=== PATIENT | male | born 1945 | race Two or more races ===

== ENCOUNTER 2017-02-04 18:54 | Emergency (ER) | payer OTHER ==
[~2017-02-04] VITALS: Ht 160 cm; Wt 74.8 kg
[2017-02-04] MEDS ORDERED: cloNIDine HCL 0.1 MG TAB PO ONE (19:15)
[2017-02-05 03:35] VITALS: BP 181/101
== END 2017-02-05 03:53 | disposition home or self-care (01) ==
LOC: ER 18:54
DX: M79.662 Pain in left lower leg (principal); I10 Essential (primary) hypertension; F17.210 Nicotine dependence, cigarettes, uncomplicated
CPT/HCPCS: 93971

== ENCOUNTER 2022-10-24 13:09 | Inpatient (IN) | payer OTHER ==
[~2022-10-24] VITALS: Ht 167.6 cm; Wt 74.8 kg
[2022-10-24] MEDS ORDERED: LABETALOL HCL 5 MG/ML 4ML SYRINGE IV ONE (13:30)
[2022-10-24] MEDS ORDERED: MECLIZINE HCL 25 MG TAB PO ONE (13:30)
[2022-10-24 13:42] LABS: Basophils # (auto) 0.1 10 ^3/uL (0-0.2); Eosinophils # (auto) 0.2 10 ^3/uL (0-0.8); Lymphocytes # (auto) 0.9 10 ^3/uL (0.4-5.4); Monocytes # (auto) 0.5 10 ^3/uL (0-1.3)
[2022-10-24 13:44] LABS: Basophils % (auto) 0.5 % (0.0-2.0); Eosinophils % (auto) 1.3 % (0.0-7.0); Hemoglobin 18.9 g/dL (13.5-17.5); Mean Corpuscular Hemoglobin 33.2 pg (28.0-32.0); Mean Corpuscular Hgb Conc. 33.5 g/dL (32.0-36.0); Mean Corpuscular Volume 99.1 fL (80.0-100.0); Monocytes % (auto) 4.2 % (0.0-12.0); Neutrophils # (auto) 10.9 10 ^3/uL (1.6-8.6); Nucleated Red Blood Cells % 0.1 %; Red Cell Distribution Width 16.4 % (11.8-14.3); White Blood Cell 12.5 10^3/uL (4.4-10.8)
[2022-10-24 13:52] LABS: Hematocrit 56.5 % (41.0-53.0)
[2022-10-24 14:04] LABS: Calcium 9.2 mg/dL (8.5-10.1); Magnesium 2.4 mg/dL (1.6-2.6); Potassium 3.8 mmol/L (3.5-5.1)
[2022-10-24 14:07] LABS: BUN/Creatinine Ratio 10.6; Bilirubin, Total 1.1 mg/dL (0.2-1.0); Total Protein 7.1 g/dL (6.4-8.2)
[2022-10-24] MEDS ORDERED: HYDROcodone-ACET 5/325MG TAB PO PRN (16:15)
[2022-10-24] MEDS ORDERED: NITROGLYCERIN 0.4 MG SL TAB SL PRN (16:15)
[2022-10-24] MEDS ORDERED: ONDANSETRON HCL 4 MG/2 ML VIAL IV PRN (16:15)
[2022-10-24] MEDS ORDERED: MORPHINE SULFATE INJ 2 MG/ml SYRG IV PRN (16:15)
[2022-10-24] MEDS ORDERED: DOCUSATE SOD 100 MG CAP PO PRN (16:15)
[2022-10-24] MEDS ORDERED: ACETAMINOPHEN 325 MG TAB PO PRN (16:15)
[2022-10-24] MEDS ORDERED: LISI40TA11 (16:30)
[2022-10-24] MEDS ORDERED: ATOR20TA50 PO (16:30)
[2022-10-24] MEDS ORDERED: HYDR12.56 PO (16:30)
[2022-10-24] MEDS ORDERED: diazePAM 5 MG TAB PO ONE (16:45)
[2022-10-24] MEDS ORDERED: LORazepam 2MG/ML-1ML VIAL IV PRN (17:15)
[2022-10-24] MEDS ORDERED: ASPirin 325 MG TAB PO ONE (17:15)
[2022-10-24] MEDS ORDERED: hydrALAZINE HCL 20 MG/ML VL IV PRN (18:15)
[2022-10-24 20:00] LABS: INR 1.1 (0.9-1.15); Partial Thromboplastin Time 30.6 sec (24.6-33.4)
[2022-10-24] MEDS: SODIUM CHLOR 0.9% PF (SALINE LOCK) 10ML VIAL/SYR IV SCH (22:09)
[2022-10-24] MEDS: GABAPENTIN 300 MG CAP PO SCH (22:09)
[2022-10-25 02:17] LABS: Urine Bacteria NONE SEEN /hpf (None Seen); Urine Blood Negative /uL (Negative); Urine WBC 1 /hpf (0 - 3)
[2022-10-25 05:12] LABS: Basophils # (auto) 0 10 ^3/uL (0-0.2); Basophils % (auto) 0.3 % (0.0-2.0); Eosinophils # (auto) 0.4 10 ^3/uL (0-0.8); Hematocrit 54.9 % (41.0-53.0); Monocytes # (auto) 0.7 10 ^3/uL (0-1.3); Neutrophils # (auto) 11.9 10 ^3/uL (1.6-8.6); Red Cell Distribution Width 15.9 % (11.8-14.3); White Blood Cell 14.2 10^3/uL (4.4-10.8)
[2022-10-25 05:13] LABS: Hemoglobin 18.4 g/dL (13.5-17.5); Lymphocytes # (auto) 1.2 10 ^3/uL (0.4-5.4); Lymphocytes % (auto) 8.3 % (10.0-50.0); Mean Corpuscular Hemoglobin 33.1 pg (28.0-32.0); Mean Corpuscular Hgb Conc. 33.6 g/dL (32.0-36.0); Mean Corpuscular Volume 98.5 fL (80.0-100.0); Monocytes % (auto) 4.6 % (0.0-12.0); Neutrophils % (auto) 83.8 % (37.0-80.0); Nucleated Red Blood Cells % 0.1 %; Red Blood Cells 5.57 10^6/uL (4.5-5.90)
[2022-10-25 05:33] LABS: Albumin 3.3 g/dL (3.4-5.0); Calcium 8.7 mg/dL (8.5-10.1); Potassium 3.1 mmol/L (3.5-5.1)
[2022-10-25 05:35] LABS: BUN/Creatinine Ratio 12.7
[2022-10-25 05:38] LABS: Total Protein 6.8 g/dL (6.4-8.2)
[2022-10-25] MEDS: GABAPENTIN 300 MG CAP PO SCH ×2 (05:51→22:27)
[2022-10-25] MEDS: SODIUM CHLOR 0.9% PF (SALINE LOCK) 10ML VIAL/SYR IV SCH ×3 (05:51→22:28)
[2022-10-25] MEDS ORDERED: AMIODARONE HCL 150 MG in D5W 5% 100 ML IV ONE (07:15)
[2022-10-25] MEDS ORDERED: AMIODARONE 450mg/250ml AE 250 ML IV SCH ×2 (07:30→13:30)
[2022-10-25] MEDS ORDERED: POTASSIUM CHL 20 Meq TABLET PO ONE (08:45)
[2022-10-25] MEDS: cefTRIAXone 1GM/50ML D5W 50 ML IV SCH (09:28)
[2022-10-25 09:29] LABS: Phosphorus 2.5 mg/dL (2.5-4.90)
[2022-10-25] MEDS ORDERED: ASPirin-EC 81 mg tab PO ONE (10:30)
[2022-10-25] MEDS ORDERED: ATORVASTATIN 20 MG TAB PO ONE (10:30)
[2022-10-25] MEDS ORDERED: ENOXAPARIN SOD 80 MG/0.8ML SYRINGE SC ONE (10:45)
[2022-10-25] MEDS: LISINOPRIL 10 MG TAB PO SCH (10:58)
[2022-10-25] MEDS: METOPROLOL SUCCINATE XL 50 MG TAB PO SCH ×2 (10:58→22:00)
[2022-10-25] MEDS: FOLIC ACID 1 MG, MULTIPLE VITAMIN 10 ML, MAGNESIUM SULF SDV 50% 8 MEQ, THIAMINE INJ 100... INJ SCH ×5 (12:00)
[2022-10-25] MEDS: ENOXAPARIN SOD 80 MG/0.8ML SYRINGE SC SCH (22:00)
[2022-10-25 22:50] VITALS: BP 155/83
[2022-10-26] VITALS (14 sets, daily range): BP systolic 129–203; BP diastolic 69–91
[2022-10-26] MEDS: GABAPENTIN 300 MG CAP PO SCH ×4 (05:38→21:40)
[2022-10-26] MEDS: SODIUM CHLOR 0.9% PF (SALINE LOCK) 10ML VIAL/SYR IV SCH ×3 (05:41→21:43)
[2022-10-26 06:23] LABS: Magnesium 2.1 mg/dL (1.6-2.6); Potassium 4.1 mmol/L (3.5-5.1)
[2022-10-26 06:26] LABS: BUN/Creatinine Ratio 17.9; Calcium 8.7 mg/dL (8.5-10.1)
[2022-10-26 07:04] LABS: Basophils # (auto) 0.1 10 ^3/uL (0-0.2); Basophils % (auto) 0.8 % (0.0-2.0); Eosinophils # (auto) 0.5 10 ^3/uL (0-0.8); Eosinophils % (auto) 4.1 % (0.0-7.0); Hematocrit 53.5 % (41.0-53.0); Hemoglobin 17.8 g/dL (13.5-17.5); Lymphocytes # (auto) 1.8 10 ^3/uL (0.4-5.4); Lymphocytes % (auto) 13.8 % (10.0-50.0); Mean Corpuscular Hgb Conc. 33.2 g/dL (32.0-36.0); Mean Corpuscular Volume 99.4 fL (80.0-100.0); Monocytes # (auto) 0.8 10 ^3/uL (0-1.3); Neutrophils # (auto) 9.8 10 ^3/uL (1.6-8.6); Neutrophils % (auto) 75.3 % (37.0-80.0); Nucleated Red Blood Cells % 0.1 %; Red Blood Cells 5.38 10^6/uL (4.5-5.90); Red Cell Distribution Width 16.3 % (11.8-14.3)
[2022-10-26] MEDS ORDERED: NIFEdipine ER 30 MG TAB PO ONE (07:30)
[2022-10-26] MEDS: METOPROLOL SUCCINATE XL 50 MG TAB PO SCH ×2 (08:30→21:39)
[2022-10-26] MEDS: LISINOPRIL 10 MG TAB PO SCH (08:31)
[2022-10-26] MEDS ORDERED: hydrALAZINE HCL 25 MG TAB PO ONE ×2 (08:45→14:00)
[2022-10-26] MEDS: cefTRIAXone 1GM/50ML D5W 50 ML IV SCH (09:00)
[2022-10-26] MEDS ORDERED: fentaNYL CITRATE 100 MCG/2 ML VL ONE (09:52)
[2022-10-26] MEDS ORDERED: ANGIOMAX 250 MG VIAL IV ONE (09:52)
[2022-10-26] MEDS ORDERED: VERAPAMIL 2.5MG/ML INJ 2ML VIAL IV ONE (09:52)
[2022-10-26] MEDS ORDERED: HEPARIN SODIUM (PORCINE) 5000 UNITS/ML 1ML VIAL ONE (09:52)
[2022-10-26] MEDS ORDERED: MIDAZOLAM HCL 2MG/2ML 2ml VIAL (1mg/ml) ONE (09:52)
[2022-10-26] MEDS ORDERED: SODIUM CHL 0.9% 50 ML ONE (09:52)
[2022-10-26] MEDS ORDERED: LIDOCAINE 2%HCL (LOCAL ANESTH.) INJ 10ml MDV ONE (09:53)
[2022-10-26] MEDS ORDERED: IODIXANOL 320MG/ML 100ML BTL IV ONE ×2 (09:58→10:49)
[2022-10-26] MEDS: ENOXAPARIN SOD 80 MG/0.8ML SYRINGE SC SCH (10:00)
[2022-10-26] MEDS ORDERED: ASPirin-EC 81 mg tab PO SCH (10:00)
[2022-10-26] MEDS ORDERED: CLOPIDOGREL 300 MG TAB ONE (10:47)
[2022-10-26] MEDS ORDERED: hydrALAZINE HCL 20 MG/ML VL ONE (10:53)
[2022-10-26 11:52] LABS: Hepatitis B Surface Antibody Positive (Negative)
[2022-10-26] MEDS: FOLIC ACID 1 MG, MULTIPLE VITAMIN 10 ML, MAGNESIUM SULF SDV 50% 8 MEQ, THIAMINE INJ 100... INJ SCH ×5 (12:00)
[2022-10-26 12:25] LABS: Hepatitis A Total Antibody Positive (Negative)
[2022-10-26] MEDS ORDERED: ASPI-543 PO ×2 (12:54)
[2022-10-26] MEDS ORDERED: LISI40TA11 PO (12:54)
[2022-10-26] MEDS ORDERED: ATOR20TA50 PO (12:54)
[2022-10-26] MEDS ORDERED: ERGO1CAP23 PO (12:54)
[2022-10-26] MEDS ORDERED: HYDR12.56 PO (12:54)
[2022-10-26] MEDS ORDERED: CLOP75TA70 PO (12:54)
[2022-10-26] MEDS ORDERED: METO-6 PO ×2 (12:54)
[2022-10-26 15:18] LABS: Hepatitis C Antibody Negative (Negative)
[2022-10-26] MEDS ORDERED: cloNIDine HCL 0.1 MG TAB PO ONE (15:45)
[2022-10-26] MEDS ORDERED: LISINOPRIL 10 MG TAB PO ONE (15:45)
[2022-10-26] MEDS: ATORVASTATIN 20 MG TAB PO SCH (21:40)
[2022-10-27] MEDS: GABAPENTIN 300 MG CAP PO SCH ×3 (05:28→21:55)
[2022-10-27 05:30] VITALS: BP_SYST 112; BP_SYST 93; BP_DIAS 61; BP_DIAS 80
[2022-10-27] MEDS: SODIUM CHLOR 0.9% PF (SALINE LOCK) 10ML VIAL/SYR IV SCH ×3 (05:30→21:57)
[2022-10-27 08:00] VITALS: BP 121/77
[2022-10-27] MEDS: cefTRIAXone 1GM/50ML D5W 50 ML IV SCH ×2 (08:00→12:34)
[2022-10-27] MEDS ORDERED: AMIODARONE HCL 200 MG TAB PO ONE (08:00)
[2022-10-27] MEDS: CLOPIDOGREL BISULFATE 75 MG TAB PO SCH (08:09)
[2022-10-27 08:42] LABS: Basophils # (auto) 0.1 10 ^3/uL (0-0.2); Eosinophils # (auto) 0.3 10 ^3/uL (0-0.8); Lymphocytes # (auto) 1.2 10 ^3/uL (0.4-5.4); Mean Corpuscular Volume 98.9 fL (80.0-100.0)
[2022-10-27 08:44] LABS: Basophils % (auto) 0.7 % (0.0-2.0); Eosinophils % (auto) 1.7 % (0.0-7.0); Hemoglobin 19.4 g/dL (13.5-17.5); Lymphocytes % (auto) 7.5 % (10.0-50.0); Mean Corpuscular Hemoglobin 33.3 pg (28.0-32.0); Mean Corpuscular Hgb Conc. 33.7 g/dL (32.0-36.0); Neutrophils # (auto) 13.6 10 ^3/uL (1.6-8.6); Neutrophils % (auto) 84.1 % (37.0-80.0); Nucleated Red Blood Cells % 0.1 %; Red Blood Cells 5.83 10^6/uL (4.5-5.90); Red Cell Distribution Width 16.1 % (11.8-14.3); White Blood Cell 16.2 10^3/uL (4.4-10.8)
[2022-10-27 08:49] LABS: Hematocrit 57.7 % (41.0-53.0)
[2022-10-27 08:53] LABS: Potassium 3.8 mmol/L (3.5-5.1)
[2022-10-27 08:59] LABS: Magnesium 2.5 mg/dL (1.6-2.6)
[2022-10-27] MEDS ORDERED: ASPirin-EC 81 mg tab PO SCH (10:00)
[2022-10-27] MEDS: LISINOPRIL 10 MG TAB PO SCH (10:00)
[2022-10-27] MEDS ORDERED: NIFEdipine ER 30 MG TAB PO SCH (10:00)
[2022-10-27] MEDS: METOPROLOL SUCCINATE XL 50 MG TAB PO SCH ×2 (10:00→21:54)
[2022-10-27] MEDS ORDERED: DOXYCYCLINE 100 MG TAB/CAP PO ONE (10:30)
[2022-10-27 12:00] VITALS: BP 112/69
[2022-10-27] MEDS: FOLIC ACID 1 MG, MULTIPLE VITAMIN 10 ML, MAGNESIUM SULF SDV 50% 8 MEQ, THIAMINE INJ 100... INJ SCH ×5 (12:00)
[2022-10-27] MEDS: APIXABAN 2.5 MG TAB PO SCH ×2 (12:35→14:14)
[2022-10-27] MEDS ORDERED: DIGOXIN (250MCG/ML) 2 ML AMPULE IV ONE (13:15)
[2022-10-27 14:41] LABS: Urine Bacteria NONE SEEN /hpf (None Seen); Urine Blood Negative /uL (Negative); Urine Hyaline Cast FEW /lpf (0 - 2); Urine Mucus FEW (None Seen); Urine Specific Gravity 1.026 (1.001-1.035); Urine WBC 1 /hpf (0 - 3)
[2022-10-27 16:00] VITALS: BP 129/88
[2022-10-27] MEDS ORDERED: AMIODARONE HCL 150 MG in D5W 5% 100 ML IV ONE (19:15)
[2022-10-27] MEDS ORDERED: AMIODARONE 450mg/250ml AE 250 ML IV SCH (19:30)
[2022-10-27] MEDS: APIXABAN 5 MG TAB PO SCH (20:46)
[2022-10-27] MEDS: DOXYCYCLINE 100 MG TAB/CAP PO SCH (21:55)
[2022-10-27] MEDS: ATORVASTATIN 20 MG TAB PO SCH (21:55)
[2022-10-27 22:00] VITALS: BP 141/75
[2022-10-27] MEDS ORDERED: AMIODARONE HCL 200 MG TAB PO SCH (22:00)
[2022-10-28] MEDS ORDERED: AMIODARONE 450mg/250ml AE 250 ML IV SCH (01:30)
[2022-10-28] MEDS: GABAPENTIN 300 MG CAP PO SCH ×3 (06:36→21:55)
[2022-10-28] MEDS: SODIUM CHLOR 0.9% PF (SALINE LOCK) 10ML VIAL/SYR IV SCH ×3 (06:38→21:58)
[2022-10-28 07:02] LABS: Calcium 8.4 mg/dL (8.5-10.1); Potassium 4.6 mmol/L (3.5-5.1)
[2022-10-28 07:06] LABS: BUN/Creatinine Ratio 25.3
[2022-10-28 07:24] LABS: Basophils # (auto) 0 10 ^3/uL (0-0.2); Basophils % (auto) 0.1 % (0.0-2.0); Eosinophils # (auto) 0 10 ^3/uL (0-0.8); Eosinophils % (auto) 0.1 % (0.0-7.0); Hemoglobin 10.4 g/dL (13.5-17.5); Lymphocytes # (auto) 0.7 10 ^3/uL (0.4-5.4); Lymphocytes % (auto) 5.6 % (10.0-50.0); Mean Corpuscular Hemoglobin 26.5 pg (28.0-32.0); Mean Corpuscular Hgb Conc. 31.5 g/dL (32.0-36.0); Mean Corpuscular Volume 84.1 fL (80.0-100.0); Monocytes # (auto) 0.7 10 ^3/uL (0-1.3); Monocytes % (auto) 5.3 % (0.0-12.0); Neutrophils # (auto) 11.8 10 ^3/uL (1.6-8.6); Neutrophils % (auto) 88.9 % (37.0-80.0); Nucleated Red Blood Cells % 0.1 %; Red Blood Cells 3.92 10^6/uL (4.5-5.90); Red Cell Distribution Width 16.7 % (11.8-14.3); White Blood Cell 13.3 10^3/uL (4.4-10.8)
[2022-10-28 08:20] VITALS: BP 159/80
[2022-10-28] MEDS: APIXABAN 5 MG TAB PO SCH ×2 (08:20→20:34)
[2022-10-28] MEDS: DOXYCYCLINE 100 MG TAB/CAP PO SCH ×2 (09:10→21:55)
[2022-10-28] MEDS: LISINOPRIL 10 MG TAB PO SCH (09:11)
[2022-10-28] MEDS: cefTRIAXone 1GM/50ML D5W 50 ML IV SCH (09:17)
[2022-10-28] MEDS: METOPROLOL SUCCINATE XL 50 MG TAB PO SCH (10:00)
[2022-10-28] MEDS: cloNIDine HCL 0.1 MG TAB PO PRN ×2 (12:11→21:55)
[2022-10-28 12:15] VITALS: BP 161/79
[2022-10-28] MEDS ORDERED: METO25TA93 PO (12:27)
[2022-10-28] MEDS ORDERED: DOX100T PO (12:27)
[2022-10-28] MEDS ORDERED: APIX5TAB PO (12:27)
[2022-10-28] MEDS: CLOPIDOGREL BISULFATE 75 MG TAB PO SCH (12:29)
[2022-10-28] MEDS ORDERED: LISINOPRIL 20 MG TAB PO ONE (12:30)
[2022-10-28] MEDS ORDERED: NIFEdipine ER 30 MG TAB PO ONE (15:30)
[2022-10-28 16:10] VITALS: BP 137/88
[2022-10-28] MEDS: ATORVASTATIN 20 MG TAB PO SCH (21:55)
[2022-10-28 22:02] VITALS: BP 163/93
[2022-10-28] MEDS ORDERED: hydrALAZINE HCL 10 MG TAB PO PRN (23:15)
[2022-10-29 05:00] LABS: Basophils # (auto) 0.1 10 ^3/uL (0-0.2); Eosinophils # (auto) 0.5 10 ^3/uL (0-0.8); Hemoglobin 17.7 g/dL (13.5-17.5); Monocytes # (auto) 0.9 10 ^3/uL (0-1.3); Neutrophils % (auto) 78.7 % (37.0-80.0)
[2022-10-29 05:01] VITALS: BP 140/76
[2022-10-29 05:02] LABS: Basophils % (auto) 0.5 % (0.0-2.0); Eosinophils % (auto) 3.5 % (0.0-7.0); Hematocrit 52.4 % (41.0-53.0); Lymphocytes # (auto) 1.5 10 ^3/uL (0.4-5.4); Lymphocytes % (auto) 10.7 % (10.0-50.0); Mean Corpuscular Hemoglobin 33.4 pg (28.0-32.0); Mean Corpuscular Hgb Conc. 33.7 g/dL (32.0-36.0); Mean Corpuscular Volume 99.2 fL (80.0-100.0); Monocytes % (auto) 6.6 % (0.0-12.0); Neutrophils # (auto) 11.1 10 ^3/uL (1.6-8.6); Nucleated Red Blood Cells % 0.1 %; Red Blood Cells 5.29 10^6/uL (4.5-5.90); White Blood Cell 14.1 10^3/uL (4.4-10.8)
[2022-10-29] MEDS: GABAPENTIN 300 MG CAP PO SCH ×2 (05:11→14:00)
[2022-10-29] MEDS: SODIUM CHLOR 0.9% PF (SALINE LOCK) 10ML VIAL/SYR IV SCH (05:14)
[2022-10-29 05:18] LABS: BUN/Creatinine Ratio 24.7; Calcium 9.1 mg/dL (8.5-10.1)
[2022-10-29 08:20] VITALS: BP 144/86
[2022-10-29] MEDS: APIXABAN 5 MG TAB PO SCH (08:30)
[2022-10-29] MEDS ORDERED: METOPROLOL SUCCINATE XL 50 MG TAB PO SCH (10:00)
[2022-10-29] MEDS: cefTRIAXone 1GM/50ML D5W 50 ML IV SCH (10:07)
[2022-10-29] MEDS: DOXYCYCLINE 100 MG TAB/CAP PO SCH (10:07)
[2022-10-29] MEDS: CLOPIDOGREL BISULFATE 75 MG TAB PO SCH (10:08)
[2022-10-29] MEDS: LISINOPRIL 10 MG TAB PO SCH (10:08)
[2022-10-29 12:18] VITALS: BP 144/86
== END 2022-10-29 14:44 | disposition home or self-care (01) | DRG 247 ==
LOC: ER 13:09 → EDBD 13:09 → TELE 16:12 → TELE-WESTW 10-25 14:16
PROVIDERS: ADMIT Nurse Practitioner Family; ATTEND Internal Medicine
PROC: 027034Z Dilation of Coronary Artery, One Artery with Drug-eluting Intraluminal Device, Percutaneous Approach (ICD-10-PCS; principal; 2022-10-26)
PROC: 4A023N7 Measurement of Cardiac Sampling and Pressure, Left Heart, Percutaneous Approach (ICD-10-PCS; 2022-10-26)
PROC: B211YZZ Fluoroscopy of Multiple Coronary Arteries using Other Contrast (ICD-10-PCS; 2022-10-26)
PROC: B215YZZ Fluoroscopy of Left Heart using Other Contrast (ICD-10-PCS; 2022-10-26)
PROC: B41FYZZ Fluoroscopy of Right Lower Extremity Arteries using Other Contrast (ICD-10-PCS; 2022-10-26)
PROC: B41CYZZ Fluoroscopy of Pelvic Arteries using Other Contrast (ICD-10-PCS; 2022-10-26)
DX: I21.4 Non-ST elevation (NSTEMI) myocardial infarction (principal); I16.1 Hypertensive emergency; I50.32 Chronic diastolic (congestive) heart failure; I11.0 Hypertensive heart disease with heart failure; E78.5 Hyperlipidemia, unspecified; F17.210 Nicotine dependence, cigarettes, uncomplicated; I48.91 Unspecified atrial fibrillation; F10.10 Alcohol abuse, uncomplicated; I49.5 Sick sinus syndrome; Z20.822 Contact with and (suspected) exposure to COVID-19
CPT/HCPCS: 36415; 70450; 71045; 71046; 75710; 80048; 80053; 80061; 81001; 82306; 83036; 83605; 83735; 84100; 84439; 84443; 84484; 85025; 85379; 85610; 85730; 86704; 86706; 86708; 86803; 86850; 86900; 86901; 87086; 87340; 87426; 92928; 93005; 93306; 93458; 93886; 96365; 96375; 99152; 99153; 99291; C1874; G0378; J0696; J2001; J2250; J3490; J7060; Q9967

== ENCOUNTER 2022-11-20 08:35 | Day surgery (SDC) | payer OTHER ==
[2022-11-18 14:39] LABS: Basophils # (auto) 0.1 10 ^3/uL (0-0.2); Eosinophils # (auto) 0.2 10 ^3/uL (0-0.8); Eosinophils % (auto) 1.6 % (0.0-7.0); Monocytes # (auto) 0.8 10 ^3/uL (0-1.3); Nucleated Red Blood Cells % 0.2 %
[2022-11-18 14:41] LABS: Basophils % (auto) 0.5 % (0.0-2.0); Lymphocytes # (auto) 1.3 10 ^3/uL (0.4-5.4); Lymphocytes % (auto) 9.2 % (10.0-50.0); Mean Corpuscular Hemoglobin 32.9 pg (28.0-32.0); Mean Corpuscular Hgb Conc. 33.8 g/dL (32.0-36.0); Mean Corpuscular Volume 97.3 fL (80.0-100.0); Monocytes % (auto) 5.9 % (0.0-12.0); Neutrophils # (auto) 11.7 10 ^3/uL (1.6-8.6); Neutrophils % (auto) 82.8 % (37.0-80.0); Red Blood Cells 5.77 10^6/uL (4.5-5.90); Red Cell Distribution Width 15.7 % (11.8-14.3); White Blood Cell 14.2 10^3/uL (4.4-10.8)
[2022-11-18 14:45] LABS: Hematocrit 56.2 % (41.0-53.0)
[2022-11-18 14:56] LABS: INR 1.13 (0.9-1.15); Partial Thromboplastin Time 31.8 sec (24.6-33.4)
[2022-11-18 15:06] LABS: Albumin 3.8 g/dL (3.4-5.0); Calcium 9.2 mg/dL (8.5-10.1); Potassium 3.2 mmol/L (3.5-5.1)
[2022-11-18 15:13] LABS: BUN/Creatinine Ratio 12.2; Bilirubin, Total 0.9 mg/dL (0.2-1.0); Total Protein 7.3 g/dL (6.4-8.2)
[~2022-11-20] VITALS: Ht 162.6 cm; Wt 72.6 kg
[~2022-11-20 08:35] MED LIST: AMLO-496 PO; APIX5TAB PO; ATOR20TA50 PO; CLOP75TA70 PO; DOX100T PO; ERGO1CAP23 PO; HYDR12.56 PO; LISI40TA11 PO; METO25TA93 PO
[2022-11-20] MEDS ORDERED: VANCOMYCIN 1GM/250ML 250 ML IV ONE ×2 (09:30→10:11)
[2022-11-20] MEDS ORDERED: fentaNYL CITRATE 100 MCG/2 ML VL ONE (10:10)
[2022-11-20] MEDS ORDERED: MIDAZOLAM HCL 2MG/2ML 2ml VIAL (1mg/ml) ONE (10:10)
[2022-11-20] MEDS ORDERED: LIDOCAINE 2%HCL (LOCAL ANESTH.) INJ 10ml MDV ONE ×2 (10:11→10:22)
[2022-11-20] MEDS ORDERED: VANCOMYCIN HCL 1000 MG VL ONE (10:20)
[2022-11-20] MEDS ORDERED: IODIXANOL 320MG/ML 100ML BTL IV ONE ×2 (10:20→10:39)
[2022-11-20] MEDS ORDERED: ceFAZolin 1GM VL ONE (10:20)
[2022-11-20] MEDS ORDERED: ACETAMINOPHEN 325 MG TAB PO ONE (14:00)
== END 2022-11-20 14:10 | disposition home or self-care (01) ==
LOC: CATH 08:35
PROVIDERS: ATTEND Internal Medicine
DX: I49.5 Sick sinus syndrome (principal); I48.91 Unspecified atrial fibrillation; Z20.822 Contact with and (suspected) exposure to COVID-19; Z79.01 Long term (current) use of anticoagulants
CPT/HCPCS: 33207; 36415; 71045; 80053; 85025; 85610; 85730; 93005; C1769; C1887; C1894; J2001; J2250; J3010; J3370; Q9967; U0003; J0690

== ENCOUNTER → 2022-11-27 | Outpatient (CLI) | payer OTHER ==
[2022-11-27 10:27] LABS: Basophils # (auto) 0.1 10 ^3/uL (0-0.2); Basophils % (auto) 0.6 % (0.0-2.0); Eosinophils # (auto) 0.3 10 ^3/uL (0-0.8); Lymphocytes # (auto) 1.3 10 ^3/uL (0.4-5.4); Red Blood Cells 5.59 10^6/uL (4.5-5.90)
[2022-11-27 10:29] LABS: Eosinophils % (auto) 2.7 % (0.0-7.0); Hematocrit 54.9 % (41.0-53.0); Hemoglobin 18.4 g/dL (13.5-17.5); Lymphocytes % (auto) 10.7 % (10.0-50.0); Mean Corpuscular Hemoglobin 32.9 pg (28.0-32.0); Mean Corpuscular Hgb Conc. 33.6 g/dL (32.0-36.0); Mean Corpuscular Volume 98.1 fL (80.0-100.0); Monocytes # (auto) 0.6 10 ^3/uL (0-1.3); Monocytes % (auto) 5.3 % (0.0-12.0); Neutrophils # (auto) 9.6 10 ^3/uL (1.6-8.6); Neutrophils % (auto) 80.7 % (37.0-80.0); Red Cell Distribution Width 15.5 % (11.8-14.3); White Blood Cell 11.9 10^3/uL (4.4-10.8)
[2022-11-27 10:52] LABS: Urine Bacteria NONE SEEN /hpf (None Seen); Urine Blood Negative /uL (Negative); Urine Specific Gravity 1.015 (1.001-1.035); Urine WBC 2 /hpf (0 - 3)
[2022-11-27 11:38] LABS: Albumin 3.5 g/dL (3.4-5.0); Potassium 3.6 mmol/L (3.5-5.1)
[2022-11-27 11:48] LABS: BUN/Creatinine Ratio 17.6; Bilirubin, Total 1.2 mg/dL (0.2-1.0); Calcium 9.3 mg/dL (8.5-10.1)
== END | disposition home or self-care (01) ==
LOC: LAB 10:10
PROVIDERS: ATTEND Internal Medicine
DX: E11.9 Type 2 diabetes mellitus without complications (principal); E78.00 Pure hypercholesterolemia, unspecified; R68.89 Other general symptoms and signs
CPT/HCPCS: 36415; 80053; 80061; 81001; 83036; 85025

== ENCOUNTER → 2023-04-19 | Outpatient (CLI) | payer OTHER ==
[~2023-04-19] MED LIST changes: -AMLO-496 PO; +AMLO1TAB23 PO; +DIGO1TAB48 PO; -DOX100T PO; -HYDR12.56 PO; +HYDR12.59 PO; -LISI40TA11 PO; +LISI40TA16 PO; +METO-6 PO; -METO25TA93 PO
== END | disposition home or self-care (01) ==
LOC: LAB 11:46
PROVIDERS: ATTEND Internal Medicine
DX: I50.9 Heart failure, unspecified (principal)
CPT/HCPCS: 36415; 80162

== ENCOUNTER → 2023-06-18 | Outpatient (CLI) | payer OTHER | END | disposition home or self-care (01) | LOC: LAB 14:55 | PROVIDERS: ATTEND Internal Medicine | DX: I50.9 Heart failure, unspecified (principal) | CPT/HCPCS: 36415; 80162 ==

== ENCOUNTER → 2024-03-02 | Outpatient (CLI) | payer OTHER | END | disposition home or self-care (01) | LOC: XYW 13:59 | PROVIDERS: ATTEND Internal Medicine | DX: I51.7 Cardiomegaly (principal); I48.20 Chronic atrial fibrillation, unspecified; Z95.0 Presence of cardiac pacemaker | CPT/HCPCS: 93306 ==

== ENCOUNTER 2024-05-16 23:07 | Inpatient (IN) | payer OTHER ==
[~2024-05-16] VITALS: Ht 162.6 cm; Wt 73.0 kg
[2024-05-16 23:45] LABS: Lymphocytes # (auto) 0.4 10 ^3/uL (0.4-5.4)
[2024-05-16 23:46] LABS: Basophils # (auto) 0.1 10 ^3/uL (0-0.2); Basophils % (auto) 0.8 % (0.0-2.0); Eosinophils # (auto) 0 10 ^3/uL (0-0.8); Eosinophils % (auto) 0.2 % (0.0-7.0); Hemoglobin 20.6 g/dL (13.5-17.5); Lymphocytes % (auto) 2.2 % (10.0-50.0); Mean Corpuscular Hemoglobin 29.6 pg (28.0-32.0); Mean Corpuscular Hgb Conc. 33.3 g/dL (32.0-36.0); Mean Corpuscular Volume 88.9 fL (80.0-100.0); Monocytes # (auto) 1.1 10 ^3/uL (0-1.3); Monocytes % (auto) 6.4 % (0.0-12.0); Neutrophils # (auto) 15.3 10 ^3/uL (1.6-8.6); Neutrophils % (auto) 90.4 % (37.0-80.0); Nucleated Red Blood Cells % 0.3 %; Platelet Count (auto) 342 10^3/uL (140-450); Red Blood Cells 6.96 10^6/uL (4.5-5.90); White Blood Cell 16.9 10^3/uL (4.4-10.8)
[2024-05-16 23:47] LABS: Hematocrit 61.9 % (41.0-53.0); Red Cell Distribution Width 21.8 % (11.8-14.3)
[2024-05-16 23:56] LABS: Anion Gap 9 (5-15); Carbon Dioxide 19 mmol/L (20-30); Chloride 109 mmol/L (98-107); Potassium 2.8 mmol/L (3.5-5.1); Sodium 137 mmol/L (136-145)
[2024-05-17 00:02] LABS: BUN/Creatinine Ratio 8.7 (10.0-20.0); Blood Urea Nitrogen 9 mg/dL (9-23); Glucose 253 mg/dL (74-106)
[2024-05-17 00:22] LABS: Anisocytosis Slight; Platelet Estimate Adequate
[2024-05-17 00:23] LABS: Giant Platelets Few; Large Platelets MODERATE; Stomatocytes Few
[2024-05-17] MEDS: MORPHINE SULFATE 4 MG/ML SYR/VIAL IV ONE (01:18)
[2024-05-17] MEDS: ONDANSETRON HCL 4 MG/2 ML VIAL IV ONE (01:18)
[2024-05-17] MEDS ORDERED: ONDANSETRON HCL 4 MG/2 ML VIAL IV PRN (03:00)
[2024-05-17 03:44] LABS: INR 1.25 (0.9-1.15); Partial Thromboplastin Time 29.8 SEC (24.5-34.5); Prothrombin Time 13.3 sec (9.3-11.8)
[2024-05-17] MEDS ORDERED: DEXTROSE (50%) 50ML SYRG IV PRN ×2 (07:15→15:30)
[2024-05-17 08:00] VITALS: PULSE 87; RESP 22; O2SAT 98
[2024-05-17 08:56] LABS: Basophils # (auto) 0.1 10 ^3/uL (0-0.2); Basophils % (auto) 0.4 % (0.0-2.0); Eosinophils # (auto) 0 10 ^3/uL (0-0.8); Eosinophils % (auto) 0.3 % (0.0-7.0); Hemoglobin 19.6 g/dL (13.5-17.5); Lymphocytes # (auto) 0.4 10 ^3/uL (0.4-5.4); Lymphocytes % (auto) 2.9 % (10.0-50.0); Mean Corpuscular Hemoglobin 29.8 pg (28.0-32.0); Mean Corpuscular Hgb Conc. 33.1 g/dL (32.0-36.0); Monocytes # (auto) 1.1 10 ^3/uL (0-1.3); Monocytes % (auto) 7.9 % (0.0-12.0); Neutrophils # (auto) 12.3 10 ^3/uL (1.6-8.6); Neutrophils % (auto) 88.5 % (37.0-80.0); Nucleated Red Blood Cells % 0.2 %; Platelet Count (auto) 298 10^3/uL (140-450); Red Blood Cells 6.58 10^6/uL (4.5-5.90); Red Cell Distribution Width 21.8 % (11.8-14.3); White Blood Cell 13.9 10^3/uL (4.4-10.8)
[2024-05-17 08:57] LABS: Hematocrit 59.3 % (41.0-53.0)
[2024-05-17] MEDS: POTASSIUM CHL 20MEQ/100ML 100 ML IV ONE (09:10)
[2024-05-17 09:14] LABS: Alanine Aminotransferase 14 U/L (7-40); Albumin 3.7 g/dL (3.2-4.8); Alkaline Phosphatase 81 U/L (46-116); Anion Gap 9 (5-15); Aspartate Aminotransferase 20 U/L (13-40); BUN/Creatinine Ratio 9.6 (10.0-20.0); Bilirubin, Total 1.6 mg/dL (0.2-1.0); Blood Urea Nitrogen 9 mg/dL (9-23); Calcium 9.9 mg/dL (8.7-10.4); Carbon Dioxide 22 mmol/L (20-30); Chloride 109 mmol/L (98-107); Glucose 180 mg/dL (74-106); Potassium 2.9 mmol/L (3.5-5.1); Sodium 140 mmol/L (136-145); Total Protein 6.7 g/dL (5.7-8.2)
[2024-05-17] MEDS: CLOPIDOGREL BISULFATE 75 MG TAB PO SCH (10:00)
[2024-05-17] MEDS: ENOXAPARIN SOD 80 MG/0.8ML SYRINGE SC SCH (10:00)
[2024-05-17] MEDS ORDERED: METOPROLOL SUCCINATE XL 50 MG TAB PO SCH (10:00)
[2024-05-17] MEDS ORDERED: LISINOPRIL 20 MG TAB PO SCH (10:00)
[2024-05-17] MEDS: ACCU-CHEK COMFORT CURVE STRIP VI SCH ×2 (12:23→18:07)
[2024-05-17] MEDS: POTASSIUM CHLORIDE 60 MEQ, LIDOCAINE 1% (LOCAL ANESTH.) 6 ML in SODIUM CHL 0.9% 500 ML IV ONE (12:24)
[2024-05-17] MEDS: InsuLIN REG 1unit/0.01ml Soln (100units/ml) SC SCH ×2 (12:24→18:07)
[2024-05-17] MEDS ORDERED: hydrALAZINE HCL 20 MG/ML VL IV PRN (13:00)
[2024-05-17 18:04] LABS: Urine Bacteria None Seen /hpf (None Seen)
[2024-05-17 18:24] LABS: Urine Blood TRACE /uL (Negative); Urine Clarity Clear (Clear); Urine Color Yellow (Yellow); Urine Mucus FEW (None Seen); Urine Protein, UAD 2+ (Negative); Urine Specific Gravity 1.015 (1.001-1.035); Urine Urobilinogen Normal (Negative); Urine WBC 3 /hpf (0 - 3)
[2024-05-17] MEDS ORDERED: VANCOMYCIN PER PHARMACY 0 MG IV SCH (19:15)
[2024-05-17 19:50] VITALS: PULSE 97; RESP 20; O2SAT 95
[2024-05-17] MEDS: BACITRACIN TOP OINT 1 UD PKG TOP ONE (20:58)
[2024-05-17] MEDS: VANCOMYCIN 1GM/200ML 200 ML IV ONE (20:59)
[2024-05-17] MEDS: ATORVASTATIN 20 MG TAB PO SCH (22:48)
[2024-05-17] MEDS: BACITRACIN TOP OINT 1 UD PKG TOP SCH (22:49)
[2024-05-17] MEDS: MORPHINE SULFATE INJ 2 MG/ml SYRG IV PRN (23:51)
[2024-05-18] VITALS (8 sets, daily range): BP systolic 130–143; BP diastolic 84–93; PULSE 66–102; RESP 18; TEMP 97.5–98; O2SAT 77–99
[2024-05-18] MEDS: HYDROcodone-ACET 7.5/325MG TAB PO ONE (03:40)
[2024-05-18 07:30] LABS: Basophils # (auto) 0.1 10 ^3/uL (0-0.2); Eosinophils # (auto) 0.5 10 ^3/uL (0-0.8); Monocytes # (auto) 1.1 10 ^3/uL (0-1.3)
[2024-05-18 07:32] LABS: Basophils % (auto) 0.8 % (0.0-2.0); Eosinophils % (auto) 3.9 % (0.0-7.0); Hematocrit 52.2 % (41.0-53.0); Hemoglobin 17.8 g/dL (13.5-17.5); Lymphocytes % (auto) 7.6 % (10.0-50.0); Mean Corpuscular Hemoglobin 30.4 pg (28.0-32.0); Mean Corpuscular Hgb Conc. 34.1 g/dL (32.0-36.0); Mean Corpuscular Volume 89.1 fL (80.0-100.0); Monocytes % (auto) 8.3 % (0.0-12.0); Neutrophils # (auto) 10.3 10 ^3/uL (1.6-8.6); Neutrophils % (auto) 79.4 % (37.0-80.0); Nucleated Red Blood Cells % 0.1 %; Platelet Count (auto) 302 10^3/uL (140-450); Red Blood Cells 5.86 10^6/uL (4.5-5.90); Red Cell Distribution Width 21.8 % (11.8-14.3)
[2024-05-18 07:42] LABS: Alanine Aminotransferase 11 U/L (7-40); Alkaline Phosphatase 73 U/L (46-116); Anion Gap 7 (5-15); BUN/Creatinine Ratio 9.9 (10.0-20.0); Blood Urea Nitrogen 9 mg/dL (9-23); Calcium 9.2 mg/dL (8.7-10.4); Carbon Dioxide 25 mmol/L (20-30); Chloride 109 mmol/L (98-107); Glucose 114 mg/dL (74-106); Magnesium 1.7 mg/dL (1.6-2.6); Potassium 3.6 mmol/L (3.5-5.1); Sodium 141 mmol/L (136-145)
[2024-05-18 07:43] LABS: Albumin 3.2 g/dL (3.2-4.8); Aspartate Aminotransferase 14 U/L (13-40); Bilirubin, Total 2.2 mg/dL (0.2-1.0); Total Protein 5.9 g/dL (5.7-8.2)
[2024-05-18] MEDS ORDERED: ENOXAPARIN SOD 100 MG/1 ML SYRINGE SC SCH (10:00)
[2024-05-18] MEDS: LISINOPRIL 20 MG TAB PO SCH (10:00)
[2024-05-18] MEDS ORDERED: CLOPIDOGREL BISULFATE 75 MG TAB PO SCH (10:00)
[2024-05-18] MEDS: METOPROLOL SUCCINATE XL 50 MG TAB PO SCH (10:00)
[2024-05-18] MEDS ORDERED: EMPAGLIFLOZIN 10 MG TAB PO SCH (10:00)
[2024-05-18] MEDS: SPIRONOLACTONE 25 MG TAB PO SCH (10:00)
[2024-05-18] MEDS: MAGNESIUM SULFATE 1GM/100ML 100 ML IV ONE (10:10)
[2024-05-18] MEDS ORDERED: DexAMETHasone SOD PHOS 10MG/1ML VIAL INJ ONE ×2 (11:54→12:19)
[2024-05-18] MEDS ORDERED: LIDOCAINE 1% INJ PF 5ML AMP ONE (11:54)
[2024-05-18] MEDS ORDERED: EPINEPHrine HCL 1 MG/1 ML AMP ONE (11:54)
[2024-05-18] MEDS: ceFAZolin 2 GM/D5W50ml 50 ML IV ONE (12:01)
[2024-05-18] MEDS ORDERED: fentaNYL CITRATE 100 MCG/2 ML VL ONE (12:02)
[2024-05-18] MEDS ORDERED: MIDAZOLAM HCL 2MG/2ML 2ml VIAL (1mg/ml) ONE ×2 (12:03→12:19)
[2024-05-18] MEDS ORDERED: MEPERIDINE HCL (25 MG/ML) 1ML VIAL ONE (12:03)
[2024-05-18] MEDS ORDERED: PROPOFOL 10 MG/ML 20 ML IV ONE (12:19)
[2024-05-18] MEDS: BUPIVACAINE HCL 50 ML ONE (12:24)
[2024-05-18] MEDS: LIDOCAINE W/ EPINEPHRINE 2% INJ 20ML VIAL ONE (13:25)
[2024-05-18] MEDS: BUPIVACAINE 0.5% INJ 50ML VIAL IJ ONE (13:26)
[2024-05-18] MEDS: LACTATED RINGER'S 1,000 ML IV SCH (13:45)
[2024-05-18] MEDS ORDERED: HYDROcodone-ACET 10/325MG TAB PO PRN (13:45)
[2024-05-18] MEDS: VANCOMYCIN 1GM/200ML 200 ML IV SCH (14:19)
[2024-05-18] MEDS: SODIUM CHLOR 0.9% PF (SALINE LOCK) 10ML VIAL/SYR IV SCH (15:07)
[2024-05-18] MEDS: ceFAZolin 2 GM/D5W50ml 50 ML IV SCH (16:45)
[2024-05-18] MEDS: HYDROcodone-ACET 5/325MG TAB PO PRN (20:21)
[2024-05-19] VITALS (12 sets, daily range): BP systolic 126–154; BP diastolic 82–96; PULSE 67–107; RESP 16–20; TEMP 97.5–98.2; O2SAT 93–98
[2024-05-19 06:33] LABS: Basophils # (auto) 0 10 ^3/uL (0-0.2); Basophils % (auto) 0.1 % (0.0-2.0); Eosinophils # (auto) 0 10 ^3/uL (0-0.8); Eosinophils % (auto) 0.2 % (0.0-7.0); Hematocrit 46.8 % (41.0-53.0); Hemoglobin 15.7 g/dL (13.5-17.5); Lymphocytes # (auto) 0.5 10 ^3/uL (0.4-5.4); Lymphocytes % (auto) 3.6 % (10.0-50.0); Mean Corpuscular Hemoglobin 29.7 pg (28.0-32.0); Mean Corpuscular Hgb Conc. 33.4 g/dL (32.0-36.0); Mean Corpuscular Volume 88.9 fL (80.0-100.0); Monocytes % (auto) 6.9 % (0.0-12.0); Neutrophils # (auto) 12.5 10 ^3/uL (1.6-8.6); Neutrophils % (auto) 89.2 % (37.0-80.0); Platelet Count (auto) 303 10^3/uL (140-450); Red Blood Cells 5.26 10^6/uL (4.5-5.90); Red Cell Distribution Width 21.1 % (11.8-14.3)
[2024-05-19 06:38] LABS: INR 1.23 (0.9-1.15); Prothrombin Time 12.8 sec (9.3-11.8)
[2024-05-19 06:41] LABS: Alkaline Phosphatase 64 U/L (46-116); Anion Gap 6 (5-15); BUN/Creatinine Ratio 14.5 (10.0-20.0); Blood Urea Nitrogen 11 mg/dL (9-23); Calcium 8.6 mg/dL (8.7-10.4); Carbon Dioxide 24 mmol/L (20-30); Chloride 109 mmol/L (98-107); Glucose 110 mg/dL (74-106); Magnesium 1.8 mg/dL (1.6-2.6); Potassium 3.8 mmol/L (3.5-5.1); Sodium 139 mmol/L (136-145)
[2024-05-19 06:42] LABS: Albumin 3.3 g/dL (3.2-4.8); Aspartate Aminotransferase 18 U/L (13-40); Bilirubin, Total 1.4 mg/dL (0.2-1.0); Total Protein 5.6 g/dL (5.7-8.2)
[2024-05-19 06:46] LABS: Alanine Aminotransferase 9 U/L (7-40)
[2024-05-19] MEDS: IODIXANOL 320MG/ML 100ML BTL IV ONE (08:44)
[2024-05-19] MEDS: HEPARIN IN NS 1000Units/500mL 1,500 ML ONE (08:44)
[2024-05-19] MEDS: ENOXAPARIN SOD 40 MG/0.4 ML SYRINGE SC SCH (09:54)
[2024-05-19] MEDS: ANGIOMAX 250 MG VIAL IV ONE (11:09)
[2024-05-19] MEDS: HEPARIN SODIUM (PORCINE) 5000 UNITS/ML 1ML VIAL ONE (11:10)
[2024-05-19] MEDS: MIDAZOLAM HCL 2MG/2ML 2ml VIAL (1mg/ml) ONE (11:10)
[2024-05-19] MEDS: LIDOCAINE 2%HCL (LOCAL ANESTH.) INJ 20ML MDV ONE (11:10)
[2024-05-19] MEDS: SODIUM CHL 0.9% 0 ML ONE (11:10)
[2024-05-19] MEDS: VERAPAMIL 2.5MG/ML INJ 2ML VIAL IV ONE (11:10)
[2024-05-19] MEDS: fentaNYL CITRATE 100 MCG/2 ML VL ONE (11:10)
[2024-05-19] MEDS: DOCUSATE SOD 100 MG CAP PO ONE (21:04)
[2024-05-19] MEDS: APIXABAN 2.5 MG TAB PO SCH (21:04)
[2024-05-20] VITALS (9 sets, daily range): BP systolic 128–144; BP diastolic 75–98; PULSE 73–104; RESP 16–20; TEMP 97.4–98.4; O2SAT 96–98
[2024-05-20 05:26] LABS: Basophils # (auto) 0.1 10 ^3/uL (0-0.2); Basophils % (auto) 0.8 % (0.0-2.0); Eosinophils # (auto) 0.5 10 ^3/uL (0-0.8); Hematocrit 46.4 % (41.0-53.0); Hemoglobin 15.6 g/dL (13.5-17.5); Lymphocytes # (auto) 1.2 10 ^3/uL (0.4-5.4); Lymphocytes % (auto) 8.7 % (10.0-50.0); Mean Corpuscular Hemoglobin 29.9 pg (28.0-32.0); Mean Corpuscular Hgb Conc. 33.6 g/dL (32.0-36.0); Mean Corpuscular Volume 88.8 fL (80.0-100.0); Monocytes # (auto) 0.8 10 ^3/uL (0-1.3); Monocytes % (auto) 5.6 % (0.0-12.0); Neutrophils # (auto) 10.8 10 ^3/uL (1.6-8.6); Neutrophils % (auto) 80.9 % (37.0-80.0); Platelet Count (auto) 297 10^3/uL (140-450); Red Blood Cells 5.23 10^6/uL (4.5-5.90); Red Cell Distribution Width 20.9 % (11.8-14.3); White Blood Cell 13.3 10^3/uL (4.4-10.8)
[2024-05-20 05:44] LABS: Alanine Aminotransferase 10 U/L (7-40); Albumin 3.4 g/dL (3.2-4.8); Alkaline Phosphatase 67 U/L (46-116); Anion Gap 6 (5-15); Aspartate Aminotransferase 22 U/L (13-40); BUN/Creatinine Ratio 22.4 (10.0-20.0); Bilirubin, Total 1.8 mg/dL (0.2-1.0); Blood Urea Nitrogen 15 mg/dL (9-23); Calcium 8.8 mg/dL (8.7-10.4); Carbon Dioxide 24 mmol/L (20-30); Chloride 108 mmol/L (98-107); Glucose 99 mg/dL (74-106); Magnesium 1.8 mg/dL (1.6-2.6); Potassium 3.4 mmol/L (3.5-5.1); Sodium 138 mmol/L (136-145)
[2024-05-20 05:45] LABS: Total Protein 5.7 g/dL (5.7-8.2)
[2024-05-20] MEDS: DOCUSATE SOD 100 MG CAP PO SCH (09:30)
[2024-05-20] MEDS: POTASSIUM CHL 20 Meq TABLET PO ONE (12:18)
[2024-05-20] MEDS ORDERED: APIX5TAB PO (15:26)
[2024-05-20] MEDS ORDERED: BAC09TP TOP (15:26)
[2024-05-20] MEDS ORDERED: SPIR25TA8 PO (15:26)
[2024-05-20] MEDS ORDERED: EMPA1TAB PO (15:26)
[2024-05-20] MEDS ORDERED: ACET-1882 PO (15:26)
[2024-05-20] MEDS ORDERED: METO25TA93 PO (15:26)
[2024-05-21] VITALS (7 sets, daily range): BP systolic 151–168; BP diastolic 76–97; PULSE 59–96; RESP 16–18; TEMP 37.1; O2SAT 95–98
[2024-05-21 09:30] LABS: Chloride 106 mmol/L (98-107); Potassium 3.5 mmol/L (3.5-5.1); Sodium 139 mmol/L (136-145)
[2024-05-21 09:31] LABS: Anion Gap 7 (5-15); Carbon Dioxide 26 mmol/L (20-30)
[2024-05-21 09:32] LABS: Calcium 9.4 mg/dL (8.7-10.4)
[2024-05-21 09:37] LABS: BUN/Creatinine Ratio 15.7 (10.0-20.0); Blood Urea Nitrogen 11 mg/dL (9-23); Glucose 143 mg/dL (74-106)
[2024-05-21] MEDS: EMPAGLIFLOZIN 10 MG TAB PO SCH (09:49)
[2024-05-21] MEDS: CLOPIDOGREL BISULFATE 75 MG TAB PO SCH (09:49)
== END 2024-05-21 17:40 | DRG 480 ==
LOC: ER 23:07 → EDBD 23:07 → OVERFLOW 05-17 02:56 → TELE-CENTR 05-17 02:56 → CENTRAL 05-17 23:15 → TELE-CENTR 05-18 03:19
PROVIDERS: ADMIT Internal Medicine; ATTEND Internal Medicine
PROC: 0QS636Z Reposition Right Upper Femur with Intramedullary Internal Fixation Device, Percutaneous Approach (ICD-10-PCS; principal; 2024-05-18 12:12)
PROC: 4A023N7 Measurement of Cardiac Sampling and Pressure, Left Heart, Percutaneous Approach (ICD-10-PCS; 2024-05-19)
PROC: B211YZZ Fluoroscopy of Multiple Coronary Arteries using Other Contrast (ICD-10-PCS; 2024-05-19)
PROC: B215YZZ Fluoroscopy of Left Heart using Other Contrast (ICD-10-PCS; 2024-05-19)
DX: S72.141A Displaced intertrochanteric fracture of right femur, initial encounter for closed fracture (principal); I50.23 Acute on chronic systolic (congestive) heart failure; I42.9 Cardiomyopathy, unspecified; I48.21 Permanent atrial fibrillation; E78.5 Hyperlipidemia, unspecified; I25.10 Atherosclerotic heart disease of native coronary artery without angina pectoris; I11.0 Hypertensive heart disease with heart failure; S01.01XA Laceration without foreign body of scalp, initial encounter; E87.6 Hypokalemia; Z79.01 Long term (current) use of anticoagulants; Z83.3 Family history of diabetes mellitus; I25.2 Old myocardial infarction; Z98.61 Coronary angioplasty status; W18.39XA Other fall on same level, initial encounter; Y93.89 Activity, other specified; Y92.89 Other specified places as the place of occurrence of the external cause; Y99.8 Other external cause status; E11.65 Type 2 diabetes mellitus with hyperglycemia
CPT/HCPCS: 36415; 70450; 71045; 72125; 72170; 73502; 76000; 80048; 80053; 81001; 82962; 83036; 83735; 83880; 84443; 85025; 85610; 85730; 86850; 86900; 86901; 93005; 93306; 93458; 97110; 97116; 97163; 97530; 99152; A4565; G0378; J0171; J1100; J1815; J2001; J2250; J2405; J2704; J3480; J3490; Q9967

== ENCOUNTER 2025-06-22 11:31 | Inpatient (IN) | payer OTHER, MEDICAID ==
[~2025-06-22] VITALS: Ht 162.6 cm; Wt 68.0 kg
[~2025-06-22 11:31] MED LIST changes: +ACET-1882 PO; -AMLO1TAB23 PO; +BAC09TP TOP; -DIGO1TAB48 PO; +EMPA1TAB PO; -ERGO1CAP23 PO; -HYDR12.59 PO; -METO-6 PO; +METO25TA93 PO; +SPIR25TA8 PO
--- NOTE | 2025-06-22 13:24 | ED.PDOC ---
Musculoskeletal HPI Comments 79-year-old male presents here with difficulty walking. He states normally he is able to walk with a cane and a walker but since this morning his right hip will not let him stand up or walk. He states he lives alone. He has called his son who called the ambulance. He states he did have surgery to the right hip proximally a year and 3 months ago April of last year in 2023. He has not had issues with it. Denies any recent injury. No fall. Denies any weakness to 1 arm or 1 leg. States he went to bed around 230 this morning. Woke up at 5:00 a.m. and that is when he noticed this inability to stand. Chief Complaint: Lower Extremity Time Seen by MD: 13:25 Primary Care Provider: JUSTINE Brown Notes: Nurses Notes, Medications, Allergies Allergies: Coded Allergies: NO KNOWN ALLERGIES (Unverified , 11/18/22) Home Meds Active Scripts Empagliflozin (Jardiance) 10 Mg Tab, 10 MG PO DAILY for 30 Days, #30 TAB 2 Refills Prov:HERNANDEZTRINITY PalmerU [facility] 05/20/24 Spironolactone (Spironolactone) 25 Mg Tab, 1 TAB PO DAILY for 30 Days, #30 TAB 2 Refills Prov:[facility]/24 Apixaban Base (ELIQUIS) 5 Mg Tab, 2.5 MG PO BID for 30 Days, #30 TAB 0 Refills Prov:[facility] 05/20/24 Metoprolol Succinate (Metoprolol Succinate Er) 25 Mg Tab, 25 MG PO DAILY for 30 Days, #30 TAB 0 Refills Prov:[facility] 05/20/24 Bacitracin (Bacitracin Oint) 1 Applic Ap, 1 APPLIC TOP BID for 5 Days, #1 APPLIC 0 Refills Prov:[facility] 05/20/24 Acetaminophen (Acetaminophen) 325 Mg Tab, 325 MG PO Q8HP PRN for 7 Days, #21 TAB 0 Refills Prov:HERNANDEZTRINITY PalmerU [facility] 05/20/24 Clopidogrel Bisulfate (CLOPIDOGREL) 75 Mg Tab, 75 MG PO DAILY for 30 Days, #30 TAB Prov:YUE WHITE MD 04/02/23 Atorvastatin Calcium (ATORVASTATIN CALCIUM) 20 Mg Tab, 40 MG PO HS for 30 Days, #30 TAB Prov:YUE WHITE MD 10/26/22 Lisinopril (Lisinopril) 40 Mg Tab, 40 MG PO DAILY for 30 Days, #30 TAB Prov:YUE WHITE MD 10/26/22 Information Source: Patient Mode of Arrival: Ambulatory Location: Right Extremity Location: Hip Timing: Months Prehospital treatment: None Severity: Moderate Able to Move Extremity: No Bear Weight: Limited Pain: Moderate Hand Dominance: Right Mechanism: Spontaneous Circumstances: Preceding Wound (SURGERY) Onset of Symptoms: Spontaneous Symptoms: Pain DVT Risk Factors: Recent surgery History of: Hip Operation Associated signs and symptoms: Hip pain Past Medical History PAST MEDICAL HISTORY: High Lipids, HTN Surgical History (Other): RIGHT HIP SX Family History Family History: Reviewed,noncontributory to illness Social History Smoker: Cigarettes Alcohol: Denies ETOH Use Drugs: Denies Drug Use Constitutional: denies: chills, diaphoresis, fatigue, fever, malaise, sweats, weakness, others EENTM: denies: blurred vision, double vision, ear bleeding, ear discharge, ear drainage, ear pain, ear ringing, eye pain, eye redness, hearing loss, mouth pain, mouth swelling, nasal discharge, nose bleeding, nose congestion, nose pain, photophobia, tearing, throat pain, throat swelling, voice changes, others Respiratory: denies: cough, hemoptysis, orthopnea, SOB at rest, shortness of breath, SOB with excertion, stridor, wheezing, others Cardiovascular: denies: chest pain, dizzy spells, diaphoresis, Dyspnea on exertion, edema, irregular heart beat, left arm pain, lightheadedness, palpitations, PND, syncope, others Gastrointestinal: denies: abdomen distended, abdominal pain, blood streaked bowels, constipated, diarrhea, dysphagia, difficulty swallowing, hematemesis, melena, nausea, poor appetite, poor fluid intake, rectal bleeding, rectal pain, vomiting, others Genitourinary: denies: burning, dysuria, flank pain, frequency, hematuria, incontinence, penile discharge, penile sore, pain, testicle pain, testicle swelling, urgency, others Neurological: denies: dizziness, fainting, headache, left sided numbness, left sided weakness, numbness, paresthesia, pre-existing deficit, right sided numbness, right sided weakness, seizure, speech problems, tingling, tremors, weakness, others Musculoskeletal: reports: others (RIGHT HIP PAIN); denies: back pain, gout, joint pain, joint swelling, muscle pain, muscle stiffness, neck pain Integumetry: denies: bruises, change in color, change in hair/nails, dryness, laceration, lesions, lumps, rash, wounds, others Allergic/Immunocompromised: denies: Difficulty Healing, Frequent Infections, Hives, Itching, others Hematologic/Lymphatic: denies: anemia, blood clots, easy bleeding, easy bruising, swollen glands, others Endocrine: denies: excessive hunger, excessive sweating, excessive thirst, excessive urination, flushing, intolerance to cold, intolerance to heat, unexplained weight gain, unexplained weight loss, others Psychiatric: denies: anxiety, bipolar disorder, depression, hopeless, panic disorder, schizophrenia, sleepless, suicidal, others All Other Systems: Reviewed and Negative Physical Exam Exam Comments Sitting in wheelchair, unable to go from a sitting to standing position at all General Appearance: No Apparent Distress, Normal HEENT: Normal ENT Inspection, Pharynx Normal, TMs Normal Neck: Full Range of Motion, Non-Tender, Normal, Normal Inspection Respiratory: Chest Non-Tender, Lungs Clear, No Accessory Muscle Use, No Respiratory Distress, Normal Breath Sounds Cardiovascular: No Edema, No JVD, No Murmur, No Gallop, Normal Peripheral Pulses, Regular Rate/Rhythm Breast Exam: Deferred Gastrointestinal: No Organomegaly, Non Tender, No Pulsatile Mass, Normal Bowel Sounds, Soft Genitalia: Deferred Pelvic: Deferred Rectal: Deferred Extremities: No calf tenderness, Normal capillary refill, Normal inspection, Normal range of motion, Non-tender, No pedal edema, Other (Nontender right hip) Musculoskeletal : Apperance: Normal Neurologic: Alert, No Motor Deficits, Normal Affect, Normal Mood, No Sensory Deficits, Other (5/5 strength bilateral upper extremities, 5/5 strength left lower extremity, 4/5 strength right lower extremity, no facial droop no slurred speech) Cerebellar Function: Normal Reflexes: Normal Skin: Dry, Normal Color, Warm Lymphatic: No Adenopathy Was a procedure done? Was a procedure done?: No EKG EKG : Comments Rate of 91 AFib a flutter with V paced complexes, prolonged QTC of 547 LVH, nonspecific ST changes Differential Diagnosis EXT Differential Diagnosis: N/A Other Differential Diagnosis Right hip dislocation right hip abscess right hip fracture, stroke X-Ray, Labs, Meds, VS Vital Signs Date Time Temp Pulse Resp B/P (MAP) Pulse Ox O2 Delivery O2 Flow Rate FiO2 06/22/25 17:10 163/117 06/22/25 16:06 91 06/22/25 16:00 97.5 90 16 165/117 (133) 96 97.5 163/115 (131) 06/22/25 11:36 98.2 82 16 149/96 97 98.2 Lab Test 06/22/25 16:34 06/22/25 15:34 Range/Units Troponin I High Sensitivity 329 *H 329 *H </=54 ng/L White Blood Count 20.2 H 4.4-10.8 10^3/uL Red Blood Count 6.37 H 4.5-5.90 10^6/uL Hemoglobin 18.7 H 13.5-17.5 g/dL Hematocrit 56.4 H 41.0-53.0 % Mean Corpuscular Volume 88.5 80.0-100.0 fL Mean Corpuscular Hemoglobin 29.4 28.0-32.0 pg Mean Corpuscular Hemoglobin Concent 33.2 32.0-36.0 g/dL Red Cell Distribution Width 21.7 H 11.8-14.3 % Platelet Count 362 140-450 10^3/uL Mean Platelet Volume 8.8 6.9-10.8 fL Neutrophils (%) (Auto) 89.6 H 37.0-80.0 % Lymphocytes (%) (Auto) 4.5 L 10.0-50.0 % Monocytes (%) (Auto) 3.9 0.0-12.0 % Eosinophils (%) (Auto) 1.4 0.0-7.0 % Basophils (%) (Auto) 0.6 0.0-2.0 % Neutrophils # (Auto) 18.1 H 1.6-8.6 10 ^3/uL Lymphocytes # (Auto) 0.9 0.4-5.4 10 ^3/uL Monocytes # (Auto) 0.8 0-1.3 10 ^3/uL Eosinophils # (Auto) 0.3 0-0.8 10 ^3/uL Basophils # (Auto) 0.1 0-0.2 10 ^3/uL Nucleated Red Blood Cells 0.2 % Sodium Level 143 136-145 mmol/L Potassium Level 2.9 L 3.5-5.1 mmol/L Chloride Level 107 98-107 mmol/L Carbon Dioxide Level 23 20-31 mmol/L Anion Gap 13 5-15 Blood Urea Nitrogen 8 L 9-23 mg/dL Creatinine 0.73 0.700-1.30 mg/dL Glomerular Filtration Rate Calc 92 >90 mL/min BUN/Creatinine Ratio 11.0 10.0-20.0 Serum Glucose 94 74-106 mg/dL Calcium Level 9.5 8.7-10.4 mg/dL Current Medications Medications (Trade) Dose Ordered Sig/Charissa Route Start Time Stop Time Status Last Admin Aspirin 162 mg ONCE ONCE PO 06/22/25 15:15 06/22/25 15:16 DC 06/22/25 17:09 Hydralazine HCl (Apresoline Injection) 5 mg ONCE ONCE IV 06/22/25 16:15 06/22/25 16:16 DC 06/22/25 17:10 [place] [id number] Ph: [phone] DIAGNOSTIC IMAGING Diagnostic Imaging Report : [id number] Signed PATIENT: LAN LOVE CACCT: [id number] UNIT: [id number] : 1945 LOC: ER ROOM / BED: / AGE / SEX: 79 / M ADM STATUS: REG ER SERVICE 1302 ORDERING PHYSICIAN: SB FONG MD PROCEDURE(s): RHPCT - CT R HIP WITH OUT CONTRAST REASON: Increased pain rule out dislocation fracture ORDER NUMBER(s): [id number], ACCESSION NUMBER(s): [id number] EXAM: CT CT R HIP WITH OUT CONTRAST INDICATION: Increased pain rule out dislocation fracture TECHNIQUE: Axial images of right hip without contrast have been obtained along with coronal and sagittal reformatted images. All CT scans at this facility use dose modulation, iterative reconstruction, and/or weight based dosing when appropriate to reduce radiation dose to as low as reasonably achievable. COMPARISON: XY R HIP COMPLETE XRAY on DOS: 05/30/24 FINDINGS: BONES: Right cephalomedullary nail fixation persistent visualization of possible trace fracture plane along the right greater trochant multiple areas of heterotopic ossification along the margins of the right lesser trochanter. Degenerative change of the right hip with chondrocalcinosis. MUSCLES: No abnormal attenuation. JOINT SPACES: No joint effusion. TENDONS/LIGAMENTS: Intact. OTHER: Vascular calcifications. IMPRESSION: 1. No CT evidence of an acute fracture. 2. Right cephalomedullary nail fixation with persistent visualization of possible trace fracture plane along the right greater trochanter. 3. Degenerative change of the right hip with chondrocalcinosis. 4. No evidence of dislocation ATED BY: JOSE LUIS HARTLEY MD DICTATED DATE/TIME: 06/22/251437 SIGNED BY: JOSE LUIS HARTLEY MD SIGNED DATE/TIME: 06/22/251437 CC: 79-year-old male presents here with inability to ambulate or walk any longer. He has a history of right hip surgery last year and states it has been okay but today he is unable to get up from that right hip. On my examination he has no evidence of facial droop or slurred speech. \he does have 4/5 strength to the right lower extremity however unable to determine if this is secondary to weakness and pain preventing him from generating strength. At this time he is out of the time window for tPA. Last seen normal was 2:30 a.m.. I have ordered CBC, BMP CT scan of the brain. CT scan of the hip with no evidence of acute fracture. It does demonstrate right cephalomedullary nail fixation with persistent visualization of possible trace fracture plane long the right greater trochanter. However given that he is unable to ambulate at all, hospitalist team has been contacted for admission. CBC demonstrates leukocytosis of 20, BMP with a low potassium of 2.9. The exact cause of the leukocytosis is unclear. Considered possible septic joint however he does not report pain to the hip. At this time I have empirically started him on vancomycin Zosyn after blood cultures. I have started him on 30 cc/kilos bolus. I have ordered lactic acid. CT scan of the brain with no evidence of intracranial hemorrhage or acute stroke. Additionally I was notified by nursing staff in his blood pressure was extremely high. At this time he has been for hydralazine 5 mg IV. EKG with significant PVCs. At this time patient is pending admission. Time of 1ST Reevaluation: 13:55 Reevaluation 1ST: Unchanged Patient Education/Counseling: Diagnosis, Treatment, Prognosis Family Education/Counseling: No Family Present Departure 1 Departure Time of Disposition: 17:52 Impression: Primary Impression: Inability to ambulate due to right hip Additional Impressions: Leukocytosis Qualified Codes: D72.829 - Elevated white blood cell count, unspecified Hypokalemia Hypertensive urgency Disposition: ADMITTED INPATIENT Condition: Serious Discharged With: Self Critical Care Note Critical Care Time?: Yes (35 min-critical care time only) Critical care comment: Patient required multiple re-evaluations of his blood pressure for immediate deterioration. Stability Stability form required: No Heart Score Heart Score: Heart Score Response (Comments) Value History N/A 0 EKG N/A 0 Age >65 2 Risk Factors N/A 0 Troponin N/A 0 Total 2 I personally scribed for SB FONG MD ([email or web address]) on 06/22/25 at 13:24. Electronically submitted by Urban Garcia ([place]). I personally scribed for SB FONG MD ([email or web address]) on 06/22/25 at 16:31. Electronically submitted by Urban Garcia ([place]). I personally scribed for SB FONG MD ([email or web address]) on 06/22/25 at 17:20. Electronically submitted by Urban Garcia ([place]). SB FONG MD Jun 22, 2025 13:24
--- NOTE | 2025-06-22 14:41 | DVH ---
EXAM: CT CT R HIP WITH OUT CONTRAST INDICATION: Increased pain rule out dislocation fracture TECHNIQUE: Axial images of right hip without contrast have been obtained along with coronal and sagit nolberto reformatted images. All CT scans at this facility use dose modulation, iterative reconstruction, and/or weight based dosing when appropriate to reduce radiation dose to as low as reasonably achievab le. COMPARISON: XY R HIP COMPLETE XRAY on DOS: 05/30/24 FINDINGS: BONES: Right cephalomedullary nail fixation persistent visualization of possible trace fracture plane along the right greater trochant multiple areas of heterotopic ossification along the margins of th e right lesser trochanter. Degenerative change of the right hip with chondrocalcinosis. MUSCLES: No abnormal attenuation. JOINT SPACES: No joint effusion. TENDONS/LIGAMENTS: Intact. OTHER: Vascular calcifications. IMPRESSION: 1. No CT evidence of an acute fracture. 2. Right cephalomedullary nail fixation with persistent visualization of possible trace fracture plan e along the right greater trochanter. 3. Degenerative change of the right hip with chondrocalcinosis. 4. No evidence of dislocation
[2025-06-22 15:48] LABS: Hematocrit 56.4 % (41.0-53.0); Hemoglobin 18.7 g/dL (13.5-17.5); Mean Corpuscular Hemoglobin 29.4 pg (28.0-32.0); Mean Corpuscular Volume 88.5 fL (80.0-100.0); Nucleated Red Blood Cells % 0.2 %
[2025-06-22 15:54] LABS: Sodium 143 mmol/L (136-145)
--- NOTE | 2025-06-22 15:54 | DVH ---
CLINICAL INFORMATION: 79 years old, Male; Rule out stroke. TECHNIQUE: Axial imaging was obtained through the brain without contrast. Coronal and sagittal reform atted images were obtained, reviewed, and stored. Images were reviewed in brain and bone windows. Al l CT scans at this medical facility are performed using dose modulation techniques as appropriate to a performed exam including the following: Automated exposure control was utilized; adjustment of the MA and/or KV according to patient size; and use of iterative reconstruction technique. CTDIvol = 57.4 5 mGy DLP = 1017.19 mGy-cm COMPARISON: CT HEAD WITHOUT CONTRAST on DOS: 05/16/24, HEAD WITHOUT CONTRAST on DOS: 10/24/22, HWOCT on DOS: 10/24/22 FINDINGS: There is no acute intracranial hemorrhage. No mass effect or midline shift. Scattered areas of hypoattenuation are seen in the periventricular and subcortical white matter, which are nonspecif ic but most likely sequelae of small vessel ischemic disease. The ventricles and sulci are within nor mal limits in size for age. Basal cisterns are patent. The calvarium is similar similar-appearing me tallic foreign bodies adjacent to the right mastoid. Mild mucosal thickening of the paranasal sinuses . IMPRESSION: 1. No CT evidence of acute intracranial abnormality. 2. Stable appearing nonacute findings as detailed above.
[2025-06-22 15:55] LABS: Anion Gap 13 (5-15); Calcium 9.5 mg/dL (8.7-10.4); Carbon Dioxide 23 mmol/L (20-31)
[2025-06-22 16:00] LABS: BUN/Creatinine Ratio 11.0 (10.0-20.0); Glucose 94 mg/dL (74-106)
[2025-06-22 16:01] LABS: Blood Urea Nitrogen 8 mg/dL (9-23); Chloride 107 mmol/L (98-107); Potassium 2.9 mmol/L (3.5-5.1)
[2025-06-22] MEDS: hydrALAZINE HCL 20 MG/ML VL IV ONE (17:10)
[2025-06-22] MEDS: POTASSIUM CHL 20 Meq TABLET PO ONE (19:22)
[2025-06-22] MEDS: SODIUM CHLORIDE 0.9% 1,800 ML IV ONE (19:24)
[2025-06-22] MEDS: PIPERACILLIN-TAZOB 3.375GM 100 ML IV ONE (19:57)
[2025-06-22 21:18] LABS: Alanine Aminotransferase 16.0 U/L (7-40); Albumin 3.6 g/dL (3.2-4.8); Alkaline Phosphatase 97.0 U/L (46-116); Total Protein 6.5 g/dL (5.7-8.2)
[2025-06-22 21:21] LABS: Bilirubin, Direct 0.6 mg/dL (<0.3); Bilirubin, Total 2.0 mg/dL (0.2-1.0)
[2025-06-22] MEDS: VANCOMYCIN 1GM/250ML KIT 250 ML IV ONE (21:34)
--- NOTE | 2025-06-22 21:37 | DVH ---
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 Significantly changed f rom 03/31/2023 Lungs: Mildly prominent interstitial disease primarily throughout the right chest Pleura: No effusion. No pneumothorax. Cardiomediastinal contours: UCardiomegaly Bones: No acute osseous abnormality. IMPRESSION: Cardiomegaly Increased interstitial marking in right chest
[2025-06-23] VITALS (8 sets, daily range): BP systolic 100–182; BP diastolic 51–117; PULSE 70–121; RESP 18–20; TEMP 97.5–98.7; O2SAT 95–98
[2025-06-23] MEDS ORDERED: PNEUMOCOCCAL VACC POLYS 25 MCG/0.5 ML VIAL IM SCH (03:45)
[2025-06-23 04:20] LABS: Urine Protein, UAD 2+ (Negative)
[2025-06-23 04:25] LABS: Amphetamine Screen, Urine Neg (NEGATIVE); Barbiturate Scree,Urine Neg (NEGATIVE); Benzodiazephine Screen, Urine Neg (NEGATIVE); Cannabinoid Screen, Urine Pos (NEGATIVE); Cocaine Screen, Urine Neg (NEGATIVE); Opiate Scree,Urine Neg (NEGATIVE); Phencyclidine Screen, Urine Neg (NEGATIVE)
[2025-06-23 06:09] LABS: Hemoglobin 18.9 g/dL (13.5-17.5)
[2025-06-23 06:11] LABS: Mean Corpuscular Hemoglobin 29.6 pg (28.0-32.0); Mean Corpuscular Volume 88.9 fL (80.0-100.0); Nucleated Red Blood Cells % 0.3 %
[2025-06-23 06:14] LABS: Hematocrit 56.8 % (41.0-53.0)
[2025-06-23 06:16] LABS: Potassium 3.7 mmol/L (3.5-5.1); Sodium 145 mmol/L (136-145)
[2025-06-23 06:18] LABS: Anion Gap 10 (5-15); Calcium 9.0 mg/dL (8.7-10.4); Carbon Dioxide 25 mmol/L (20-31)
[2025-06-23 06:22] LABS: Chloride 110 mmol/L (98-107)
[2025-06-23 06:23] LABS: Glucose 88 mg/dL (74-106)
[2025-06-23 06:24] LABS: BUN/Creatinine Ratio 10.0 (10.0-20.0); Blood Urea Nitrogen 9 mg/dL (9-23)
--- NOTE | 2025-06-23 06:42 | DVHHPRES ---
History of Present Illness Resident Creating Document: RAINA BENZ RESIDENT History of Present Illness Mr. Woodall is a 79-year-old male with prior medical history of hypertension, atrial fibrillation s/p pacemaker placement, CAD, CHF, AK s/p PCI with 1 BRAD, and right femoral neck fracture s/p ORIF in May 2024, who presents today with chief complaint of right leg weakness. The patient states he usually ambulates utilizing a walker or cane with little difficulty, however he woke up today with weakness and inability to bear weight on his right leg. additionally refers intermittent dull pain in right hip, nonradiating, intensity 5/10, without relieving or aggravating factors. He states this pain was usually present, however he noticed it more today. He denies fever, nausea, vomiting, contralateral weakness, cough, chest pain, dysuria, or other symptoms. due to persistent symptoms he sought medical attention at the emergency department. On evaluation in the ED, the patient was in mild distress, hypertensive, other vitals within normal range. Twelve lead EKG shows AFib with V placed complexes, Prolonged QTC, and nonspecific ST changes. Initial labs show WBCs 20.2 with neutrophilia, hypokalemia, and elevated flat trending troponins, UDS positive for cannabinoids. CT head shows no evidence of an acute fracture or ma lalignment. CT head shows no evidence of acute intracranial abnormality. He was admitted for further work up and monitoring. Personal history: HFrEF, CAD, Atrial fibrillation s/p pacemaker placement, AK s/p PCI x 1 BRAD and right femoral neck fracture s/p ORIF in May 2024 Surgical history: ORIF of right femoral head May 2024, pacemaker placement Allergies: Denied Social: States he smokes 2-3 joints a day for the last 65 years, refers he drinks 312 Oz cans of beer daily since he was 17, denies any tobacco use. States he lives alone. Review of Systems Review of Systems Constitutional: Denies weight loss, fever and chills. HEENT: Denies changes in vision and hearing. Respiratory: Denies shortness of breath and cough Cardiovascular: Denies chest discomfort or palpitations GI: Denies abdominal distention, abdominal pain, diarrhea : Denies dysuria and urinary frequency. Musculoskeletal: Refers right leg weakness Skin: Denies rash and pruritus. Neurological: denies dizziness headache vision or hearing problems Allergies: Coded Allergies: NO KNOWN ALLERGIES (Unverified , 11/18/22) Medications Current Medications Medications Dose Ordered Sig/Charissa Route Start Time Stop Time Status Last Admin Dose Admin Enoxaparin Sodium 40 mg DAILY SC 06/23/25 10:00 Atorvastatin Calcium 40 mg HS PO 06/23/25 22:00 Empaglifozin 10 mg DAILY PO 06/23/25 10:00 Spironolactone 25 mg DAILY PO 06/23/25 10:00 Lisinopril 40 mg DAILY PO 06/23/25 10:00 Metoprolol Succinate 25 mg DAILY PO 06/23/25 10:00 Ceftriaxone Sodium 50 ml @ 100 mls/hr DAILY@09 IV 06/23/25 09:00 Pneumococcal Polyvalent Vaccine 25 mcg ONCE IM 06/23/25 03:45 UNV Exam Vital Signs Vital Signs Date Time Temp Pulse Resp B/P (MAP) Pulse Ox O2 Delivery O2 Flow Rate FiO2 06/23/25 06:00 97.9 83 19 152/95 (114) 98 97.9 06/23/25 03:02 Room Air* 0 21 Exam General: The patient alert and oriented in person place and time. Patient following commands HEENT: Normocephalic, atraumatic, normal reactive pupils, EOM intact, pink conjunctiva, pink moist mucous membrane Respiratory/pulmonary: Bilateral chest expansion, no pain on palpation of chest wall, presence of pacemaker in left pectoral region, clear lungs bilaterally, vesicular murmurs present in almost all lung pisano, no associated crackles or wheezes. Cardiovascular: Irregular rhythm, normal S1 and S2, no murmurs Abdomen: Abdomen nondistended, normal bowel sounds, soft, there is no pain to palpation in any of the abdominal quadrants, left CVA tenderness, no palpable masses. Extremities: No deformities, there is no peripheral edema present at the lower extremities, weakness of right hip, normal pulses Skin: No rashes or pruritus, there is no sacral edema present at this time. Neurological: Intact cranial nerves with no focal neurologic deficits Labs/Xrays Labs Test 06/23/25 05:40 06/23/25 03:00 06/22/25 20:35 06/22/25 16:50 Range/Units White Blood Count 22.1 H 4.4-10.8 10^3/uL Red Blood Count 6.39 H 4.5-5.90 10^6/uL Hemoglobin 18.9 H 13.5-17.5 g/dL Hematocrit 56.8 H 41.0-53.0 % Mean Corpuscular Volume 88.9 80.0-100.0 fL Mean Corpuscular Hemoglobin 29.6 28.0-32.0 pg Mean Corpuscular Hemoglobin Concent 33.3 32.0-36.0 g/dL Red Cell Distribution Width 21.4 H 11.8-14.3 % Platelet Count 443 140-450 10^3/uL Mean Platelet Volume 8.9 6.9-10.8 fL Neutrophils (%) (Auto) 84.4 H 37.0-80.0 % Lymphocytes (%) (Auto) 5.6 L 10.0-50.0 % Monocytes (%) (Auto) 5.0 0.0-12.0 % Eosinophils (%) (Auto) 3.7 0.0-7.0 % Basophils (%) (Auto) 1.3 0.0-2.0 % Neutrophils # (Auto) 18.7 H 1.6-8.6 10 ^3/uL Lymphocytes # (Auto) 1.2 0.4-5.4 10 ^3/uL Monocytes # (Auto) 1.1 0-1.3 10 ^3/uL Eosinophils # (Auto) 0.8 0-0.8 10 ^3/uL Basophils # (Auto) 0.3 H 0-0.2 10 ^3/uL Nucleated Red Blood Cells 0.3 % Sodium Level 145 136-145 mmol/L Potassium Level 3.7 3.5-5.1 mmol/L Chloride Level 110 H 98-107 mmol/L Carbon Dioxide Level 25 20-31 mmol/L Anion Gap 10 5-15 Calcium Level 9.0 8.7-10.4 mg/dL Urine Color Yellow Yellow Urine Clarity Clear Clear Urine pH 6.5 5.0-9.0 Urine Specific Trade 1.011 1.001-1.035 Urine Protein 2+ H Negative Urine Ketones Negative Negative Urine Blood Negative Negative /uL Urine Nitrite Negative Negative Urine Bilirubin Negative Negative Urine Urobilinogen Normal Negative mg/dL Urine Leukocyte Esterase Negative Negative /uL Urine RBC 1 0 - 3 /hpf Urine Microscopic WBC 3 0-3 /HPF Urine Squamous Epithelial Cells None seen <5 /hpf Urine Bacteria None seen None Seen /hpf Urine Glucose Normal Normal mg/dL Urine Opiates Screen Neg NEGATIVE Urine Fentanyl Screen Neg NEGATIVE Urine Barbiturates Screen Neg NEGATIVE Urine Phencyclidine Screen Neg NEGATIVE Urine Amphetamines Screen Neg NEGATIVE Urine Benzodiazepines Screen Neg NEGATIVE Urine Cocaine Screen Neg NEGATIVE Urine Cannabinoids Screen Pos NEGATIVE Total Bilirubin 2.0 H 0.2-1.0 mg/dL Direct Bilirubin 0.6 H <0.3 mg/dL Aspartate Amino Transferase (AST) 40 13-40 U/L Alanine Aminotransferase (ALT) 16 7-40 U/L Alkaline Phosphatase 97 46-116 U/L Troponin I High Sensitivity 302 *H </=54 ng/L Total Protein 6.5 5.7-8.2 g/dL Albumin 3.6 3.2-4.8 g/dL Lactic Acid Level 1.6 0.4-2.0 mmol/L Test 06/22/25 15:34 Range/Units Hemoglobin A1c 5.2 <5.7 % A1C Phosphorus Level 2.8 2.4-5.1 mg/dL Vitamin D 25-Hydroxy 22.8 L 30.0-100 ng/mL Thyroid Stimulating Hormone (TSH) 1.65 0.55-4.78 uIU/mL SEPSIS Sepsis Screen Date sepsis recognized/suspect: Jun 22, 2025 Time Sepsis recognized/suspect: 1929 Recent Procedure: No On Antibiotic Therapy: Yes Respiratory Rate >20: No Heart Rate >90: No Temp<36 C (96.8 F) or >38.3 C: No SBP <90 or MAP <65 mmHG: No New Acute Mental Status Change: No Is the patient on CPAP, BIPAP,: No Physician Orders Admit (06/23/25 00:09) Allergies (06/23/25 00:09) Code Status (06/23/25 00:09) Enoxaparin Sodium (Lovenox) (06/23/25 10:00) Cardiac Diet-2gna,Lofat,Lochol (06/23/25 Breakfast) Condition: Stable (06/23/25 00:09) Stat Ekg For Chest Pain (06/23/25 00:09) Notify Md Of Changes From Base (06/23/25 00:09) Emergency Dysrhythmia Protocol (06/23/25 00:09) Rhythm Strips Once Every Shift (06/23/25 00:09) Atorvastatin (Lipitor) (06/23/25 22:00) Empagliflozin (Jardiance) (06/23/25 10:00) Spironolactone (Aldactone) (06/23/25 10:00) Lisinopril Tablet (Zestril Tablet) (06/23/25 10:00) Metoprolol Xl Succinate (Toprol Xl) (06/23/25 10:00) Basic Metabolic Panel (06/23/25 04:00) Ceftriaxone 1gm/50ml (Rocephin) (06/23/25 09:00) Kidney (06/23/25 08:00) Administer Vaccination - Flu V (06/23/25 03:32) Hepatitis B Surface Antibody (06/23/25 03:32) Hepatitis C Antibody (06/23/25 03:32) Administer Vaccination - Pneum (06/23/25 03:32) * Dermatological Surgeon Consult (06/23/25 ) Pneumococcal Vac Polyvalent (Pneumovax 2 (06/23/25 10:00) Vital Signs Date Time Temp Pulse Resp B/P (MAP) Pulse Ox O2 Delivery O2 Flow Rate FiO2 06/23/25 06:00 97.9 83 19 152/95 (114) 98 97.9 06/23/25 03:02 70 18 95 Room Air* 0 21 06/23/25 03:02 98.7 70 18 145/100 (115) 95 98.7 06/23/25 01:29 65 14 136/101 (113) 97 Laboratory Tests Test 06/23/25 05:40 White Blood Count 22.1 10^3/uL (4.4-10.8) H Assessment/Plan Assessment/Plan Assessment and Plan: Possible Complicated UTI - Ceftriaxone 1 g IV daily - Zosyn IV once - Vancomycin IV once - Urine culture has been ordered Hypokalemia, 2.9, resolved - Potassium 60 mEq PO, once Possible NSTEMI type 2 Hip weakness possibly due to above - Hip CT: No evidence of an acute fracture Atrial Fibrillation - S/p pacemaker - Lovenox therapeutic dose (1 mg/kg) Chronic HFrEF, not in exacerbation - Metoprolol succinate 25 mg PO daily - Jardiance 10 mg PO daily - Spironolactone 25 mg PO daily - Lisinopril 40 mg PO daily - Atorvastatin 40 mg PO HS History of AK, s/p PCI with 1 BRAD Marijuana use - I have counseled the patient on the importance of marijuana use cessation for over 12 minutes. Diet: Cardiac DVT prophylaxis: Patient is on therapeutic lovenox GI prophylaxis: Not indicated Case discussed with Dr. Michael Goals of care discussed with the patient for over 25 minutes. FULL CODE. Plan discussed with: Patient, Other (Nurses) My Orders Orders - RAINA BENZ RESIDENT Procedure Category Date Status Time Vitamin B12 LAB 06/22/25 In Process 20:25 Urine Bacterial EILEEN 06/22/25 In Process Culture 20:25 Chest Xray 1 View XY 06/22/25 Resulted 20:37 Admit ADMIT 06/23/25 Transmitted 00:09 Allergies DAKOTAH 06/23/25 In Process 00:09 Code Status CODE 06/23/25 Transmitted 00:09 Enoxaparin Sodium PHA 06/23/25 In Process (Lovenox) 10:00 Cardiac DIET 06/23/25 Transmitted Diet-2gna,Lofat,Lochol Breakfast Condition: Stable DAKOTAH 06/23/25 In Process 00:09 Stat Ekg For Chest DAKOTAH 06/23/25 In Process Pain 00:09 Notify Md Of Changes DAKOTAH 06/23/25 In Process From Base 00:09 Emergency Dysrhythmia DAKOTAH 06/23/25 In Process Protocol 00:09 Rhythm Strips Once DAKOTAH 06/23/25 In Process Every Shift 00:09 Atorvastatin (Lipitor) PHA 06/23/25 In Process 22:00 Empagliflozin PHA 06/23/25 In Process (Jardiance) 10:00 Spironolactone PHA 06/23/25 In Process (Aldactone) 10:00 Lisinopril Tablet PHA 06/23/25 In Process (Zestril Tablet) 10:00 Metoprolol Xl PHA 06/23/25 In Process Succinate (Toprol Xl) 10:00 Basic Metabolic Panel LAB 06/23/25 In Process 04:00 Ceftriaxone 1gm/50ml PHA 06/23/25 In Process (Rocephin) 09:00 Kidney US 06/23/25 Logged 08:00 Administer DAKTOAH 06/23/25 In Process Vaccination - Flu V 03:32 Hepatitis B Surface LAB 06/23/25 In Process Antibody 03:32 Hepatitis C Antibody LAB 06/23/25 In Process 03:32 Administer DAKOTAH 06/23/25 In Process Vaccination - Pneum 03:32 * Dermatological Surgeon CONS 06/23/25 Transmitted Consult Pneumococcal Vac PHA 06/23/25 In Process Polyvalent (Pneumovax 10:00 Date of Service: Jun 23, 2025 Billing Provider: JOSE MICHAEL MD Common Visit Codes: 80465-WSOFTIR INP/OBS CARE (HIGH) Secondary Visit Codes: 08585-EKAIKEIC CARE PLAN 30 MINUTES RAINA BENZ RESIDENT Jun 23, 2025 06:42 AIDA TUCKER RESIDENT Jun 23, 2025 08:25
[2025-06-23] MEDS: EMPAGLIFLOZIN 10 MG TAB PO SCH (09:17)
[2025-06-23] MEDS: LISINOPRIL 20 MG TAB PO SCH (09:18)
[2025-06-23] MEDS: SPIRONOLACTONE 25 MG TAB PO SCH (09:18)
[2025-06-23] MEDS: METOPROLOL SUCCINATE XL 50 MG TAB PO SCH (09:19)
[2025-06-23] MEDS: ENOXAPARIN SOD 100 MG/1 ML SYRINGE SC SCH (09:20)
--- NOTE | 2025-06-23 09:30 | DVH ---
CLINICAL HISTORY: UTI TECHNIQUE: Complete ultrasound exam of the kidneys and bladder was performed. COMPARISON: None FINDINGS: The right kidney has normal echogenicity and measures 11.6 cm. There is a 4.6 cm cyst with no evidenc e for stone. There is no hydronephrosis. The left kidney has normal echogenicity and measures 12.8 cm. There is a 6.3 cm hypoechoic solid-morgan earing lesion inferiorly. There is a 2.9 cm complex mid kidney lesion. There is a 2.9 cm cyst. There is no hydronephrosis. The gallbladder demonstrates stones. There is trace ascites. The bladder is distended with a volume of 321 mL. IMPRESSION: 6.3 cm hypoechoic solid-appearing lower pole lesion, concerning for mass. 2.9 cm complex left mid kid jeremias lesion. Recommend renal MRI or CT with and without IV contrast for further evaluation. Gallstones.
[2025-06-23] MEDS ORDERED: PNEUMOCOCCAL VACC POLYS 25 MCG/0.5 ML Syringe IM ONE (10:00)
[2025-06-23] MEDS ORDERED: ENOXAPARIN SOD 40 MG/0.4 ML SYRINGE SC SCH (10:00)
[2025-06-23] MEDS: hydrALAZINE HCL 20 MG/ML VL IV ONE (17:17)
--- NOTE | 2025-06-23 18:10 | DVH ---
EXAM: CT CT AB PELVIS W WO CON-IV ONLY HISTORY: POSSIBLE RENAL MASS TECHNIQUE: Volumetric multidetector CT images of the abdomen and pelvis were obtained before and afte r the administration of intravenous contrast. All CT scans at this facility use dose modulation, iter ative reconstruction, and/or weight based dosing when appropriate to reduce radiation dose to as low as reasonably achievable. COMPARISON: XY PELVIS AP on DOS: 05/16/24 FINDINGS: [LOWER CHEST]: Trace right-sided pleural effusion. Peribronchial thickening in bilateral lung bases. Suspected peribronchovascular thickening and/or atelectasis in bilateral lung bases. Mild cardiomega ly. Coronary artery calcifications. [LIVER]: Normal hepatic size without suspicious focal lesion. [GALLBLADDER AND BILIARY TREE]: Cholelithiasis. [SPLEEN]: Large area of presumed hypoattenuation of the spleen with wedge-shaped appearance measuring 8.7 x 6.4 cm which may represent splenic infarct. Splenomegaly. [PANCREAS]: Unremarkable. [ADRENAL GLANDS]: Unremarkable [KIDNEYS]: No hydronephrosis. Significant left posterior inferior irregular kidney mass with heteroge neous enhancement measuring 5 x 6.5 cm. Additional adjacent presumed left kidney cysts. Significant s urrounding perinephric edema. [BLADDER]: Right posterolateral bladder diverticulum [REPRODUCTIVE ORGANS]: Mild to moderate prostatomegaly. [BOWEL/MESENTERY]: Stomach is normal. No CT evidence of bowel obstruction. mild stool burden. 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 Ramo elate for bowel ischemia. No discrete CT evidence of bowel ischemia. No portal venous gas. [ABDOMINAL WALL]: Minimal diffuse body wall edema [MUSCULOSKELETAL]: No acute fracture or aggressive focal osseous lesion. Prior healed right anterior rib fractures. Right hip hardware. Multilevel prior areas of kyphoplasty and superior endplate height loss. IMPRESSION: 1. 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 Correlate for miguel wel ischemia. No portal venous gas. 2. Significant left posterior inferior irregular kidney mass with heterogeneous enhancement measuring 5 x 6.5 cm. 3. Large area of presumed hypoattenuation of the spleen with wedge-shaped appearance measuring 8.7 x 6.4 cm which may represent splenic infarct. 4. Splenomegaly.
--- NOTE | 2025-06-23 19:55 | DVHPNRES ---
Progress Note Date Seen: Jun 23, 2025 Resident Creating Document: CLARA EDWARD RESIDENT Medical Necessity Reason Pt with a Central, PICC or Fol: No Subjective Review of Systems Patient seen and examined at bedside Patient was complaining of one episodes of vomiting a day before Denied fever, chills, shortness of breath, chest pain, abdominal pain Patient noted regular bowel and bladder Complaining of right hip pain No any other new complaint Objective vital signs Vital Sign Date Time Temp Pulse Resp B/P (MAP) Pulse Ox O2 Delivery O2 Flow Rate FiO2 06/23/25 19:37 94 121/79 (93) 96 06/23/25 16:51 97.5 18 97.5 06/23/25 08:30 Room Air* 0 21 Total Intake and Output 06/22/25 06/22/25 06/23/25 15:00 23:00 07:00 Intake Total 800 ml Output Total 150 ml Balance 650 ml medications Current Medications Medications Dose Ordered Sig/Charissa Route Start Time Stop Time Status Last Admin Dose Admin Atorvastatin Calcium 40 mg HS PO 06/23/25 22:00 Empaglifozin 10 mg DAILY PO 06/23/25 10:00 06/23/25 09:17 10 MG Spironolactone 25 mg DAILY PO 06/23/25 10:00 06/23/25 09:18 25 MG Lisinopril 40 mg DAILY PO 06/23/25 10:00 06/23/25 09:18 40 MG Metoprolol Succinate 25 mg DAILY PO 06/23/25 10:00 06/23/25 09:19 25 MG Ceftriaxone Sodium 50 ml @ 100 mls/hr DAILY@09 IV 06/23/25 09:00 06/23/25 09:16 100 MLS/HR Pneumococcal Polyvalent Vaccine 25 mcg ONCE IM 06/23/25 03:45 UNV Aspirin 81 mg DAILY PO 06/23/25 10:00 06/23/25 09:19 81 MG Enoxaparin Sodium 70 mg Q12HR SC 06/23/25 22:00 Examination General Appearance: Cooperative. Well developed. Well nourished. NAD Head Exam: Normal inspection Neck Exam: Normal inspection. Non-tender. Normal alignment Pulmonary/Respiratory: Chest non-tender. Clear bilateral breath sounds Cardiovascular/Chest: Regular rate and rhythm. No murmurs. No JVD. Peripheral Pulses: 2+ Radial (R). 2+ Radial (L). 2+ Pedal (R). 2+ Pedal (L) Abdominal Exam: Normal bowel sounds. Soft. Nontender. No hepatospenomegaly. No masses Ankle Exam: Negative ankle edema Lower extremities: Negative lower extremity edema Neuro/Mental Status: A&O x4. Coherent Thoughts/Psych: Normal thought pattern. Appropriate mood and affect. Good judgement and insight Appearance: In no acute distress Skin Exam: Normal inspection. Normal color. Warm. Dry laboratory and microbiology Laboratory Tests 06/23/25 05:40 Test 06/23/25 05:40 Range/Units Serum Glucose 88 74-106 mg/dL Microbiology Date/Time Source Procedure Growth Status 06/22/25 17:00 Blood Blood Culture - Preliminary NO GROWTH AFTER 24 HOURS OF INCUBATION. 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 Acute mesenteric ischemia Acute versus chronic splenic infarction ? Septic emboli Sepsis ? Unknown source of infection ? UTI Atrial fibrillation, status post pacemaker Chronic HFrEF NSTEMI type 2 due to sepsis Coronary artery disease with history of PCI with one BRAD Splenomegaly Cholelithiasis Marijuana user History of femoral intertrochanteric fracture, status post closed reduction nail insertion. Plan/recommendation -Renal mass: CT scan of abdomen:Significant left posterior inferior irregular kidney mass with heterogeneous enhancement measuring 5 x 6.5 cm. Urology consultation. Renal ultrasound:6.3 cm hypoechoic solid-appearing lower pole lesion, concerning for mass. 2.9 cm complex left mid kidney lesion. -Rmpiric IV antibiotic with Zosyn 3.375 mg IV Q eight, pending blood culture and urine culture. -Continue therapeutic Lovenox I mg/kg b.i.d., underlying atrial fibrillation, possible acute mesenteric ischemia, splenic infarction. Possible IR intervention. -Hold IV fluids, currently holding blood pressure, continue to monitor vitals for possible worsening sepsis -Repeat echocardiogram given history of HFrEF -Continue home medication lisinopril 40 mg p.o. daily, metoprolol XL succinate 25 mg p.o. daily, spironolactone 25 mg p.o. daily, Jardiance 10 mg p.o. daily. -Continue aspirin 81 mg p.o. daily, atorvastatin 40 mg p.o. daily. -PUD prophylaxis with Protonix -DVT prophylaxis with enoxaparin Goals of care discussed greater than 24 minutes, full code status. Plan discussed with Dr. Michael Plan discussed with: Patient, Other My Orders My Orders Orders - CLARA EDWARD Procedure Category Date Status Time Pt Request For Service PT 06/23/25 Logged 13:51 * Urology Consult CONS 06/23/25 Transmitted 14:26 PTPTT LAB 06/23/25 Logged 19:46 CLARA EDWARD RESIDENT Jun 23, 2025 19:55
[2025-06-23] MEDS: PIPERACILLIN-TAZOB 3.375GM 100 ML IV ONE (20:15)
[2025-06-23 20:38] LABS: INR 1.28 (0.9-1.15); Partial Thromboplastin Time 33.0 SEC (24.5-34.5); Prothrombin Time 13.2 sec (9.3-11.8)
[2025-06-23 20:48] LABS: Alanine Aminotransferase 39 U/L (7-40); Albumin 3.5 g/dL (3.2-4.8); Alkaline Phosphatase 87 U/L (46-116); Anion Gap 9 (5-15); BUN/Creatinine Ratio 11.3 (10.0-20.0); Calcium 8.8 mg/dL (8.7-10.4); Carbon Dioxide 24 mmol/L (20-31); Total Protein 6.1 g/dL (5.7-8.2)
[2025-06-23 20:50] LABS: Hematocrit 51.4 % (41.0-53.0); Hemoglobin 17.0 g/dL (13.5-17.5); Mean Corpuscular Hemoglobin 29.3 pg (28.0-32.0); Mean Corpuscular Volume 88.4 fL (80.0-100.0); Nucleated Red Blood Cells % 0.1 %
[2025-06-23 20:56] LABS: Bilirubin, Total 1.7 mg/dL (0.2-1.0); Blood Urea Nitrogen 9 mg/dL (9-23); Chloride 112 mmol/L (98-107); Glucose 133 mg/dL (74-106); Potassium 3.3 mmol/L (3.5-5.1); Sodium 145 mmol/L (136-145)
[2025-06-23] MEDS: ENOXAPARIN SOD 80 MG/0.8ML SYRINGE SC SCH (22:00)
[2025-06-23] MEDS: PANTOPRAZOLE 40 MG TAB PO ONE (22:02)
[2025-06-23] MEDS: ATORVASTATIN 20 MG TAB PO SCH (22:02)
[2025-06-23] MEDS: HYDROcodone-ACET 5/325MG TAB PO PRN (22:03)
[2025-06-24] VITALS (7 sets, daily range): BP systolic 142–167; BP diastolic 92–125; PULSE 62–91; RESP 17–20; TEMP 97.6–98.2; O2SAT 94–98
[2025-06-24 05:18] LABS: Hematocrit 50.0 % (41.0-53.0); Hemoglobin 16.5 g/dL (13.5-17.5); Mean Corpuscular Hemoglobin 29.1 pg (28.0-32.0); Mean Corpuscular Volume 88.4 fL (80.0-100.0); Nucleated Red Blood Cells % 0.0 %
[2025-06-24 05:35] LABS: Alanine Aminotransferase 22 U/L (7-40); Alkaline Phosphatase 83 U/L (46-116); Anion Gap 12 (5-15); BUN/Creatinine Ratio 9.7 (10.0-20.0); Calcium 8.8 mg/dL (8.7-10.4); Carbon Dioxide 24 mmol/L (20-31); Glucose 99 mg/dL (74-106)
[2025-06-24 05:36] LABS: Magnesium 1.7 mg/dL (1.6-2.6); Total Protein 5.8 g/dL (5.7-8.2)
[2025-06-24 05:37] LABS: Albumin 3.2 g/dL (3.2-4.8)
[2025-06-24 05:40] LABS: Bilirubin, Total 2.2 mg/dL (0.2-1.0); Blood Urea Nitrogen 7 mg/dL (9-23); Chloride 111 mmol/L (98-107); Potassium 3.0 mmol/L (3.5-5.1); Sodium 147 mmol/L (136-145)
[2025-06-24] MEDS: PANTOPRAZOLE 40 MG TAB PO SCH (06:02)
[2025-06-24 06:07] LABS: Anisocytosis Moderate
[2025-06-24] MEDS ORDERED: POTASSIUM CHL 20 Meq TABLET PO ONE (08:30)
[2025-06-24] MEDS: IOHEXOL 300 MG/ML 100ML BOTTLE IJ ONE (10:05)
[2025-06-24] MEDS: POTASSIUM CHL 20 Meq TABLET PO SCH (10:32)
--- NOTE | 2025-06-24 14:33 | DVHPNRES ---
Progress Note Date Seen: Jun 24, 2025 Resident Creating Document: MARCUS DRAKE RESIDENT Medical Necessity Reason Pt with a Central, PICC or Fol: No Subjective Review of Systems Mr. Woodall is a 79-year-old male with prior medical history of hypertension, atrial fibrillation s/p pacemaker placement, CAD, CHF, PR s/p PCI with 1 BRAD, and right femoral neck fracture s/p ORIF in May 2024, who presents today with chief complaint of right leg weakness. The patient states he usually ambulates utilizing a walker or cane with little difficulty, however he woke up today with weakness and inability to bear weight on his right leg. additionally refers intermittent dull pain in right hip, nonradiating, intensity 5/10, without relieving or aggravating factors. He states this pain was usually present, however he noticed it more today. He denies fever, nausea, vomiting, contralateral weakness, cough, chest pain, dysuria, or other symptoms. due to persistent symptoms he sought medical attention at the emergency department. On evaluation in the ED, the patient was in mild distress, hypertensive, other vitals within normal range. Twelve lead EKG shows AFib with V placed complexes, Prolonged QTC, and nonspecific ST changes. Initial labs show WBCs 20.2 with neutrophilia, hypokalemia, and elevated flat trending troponins, UDS positive for cannabinoids. CT head shows no evidence of an acute fracture or malalignment. CT head shows no evidence of acute intracranial abnormality. He was admitted for further work up and monitoring. Personal history: HFrEF, CAD, Atrial fibrillation s/p pacemaker placement, PR s/p PCI x 1 BRAD and right femoral neck fracture s/p ORIF in May 2024 Surgical history: ORIF of right femoral head May 2024, pacemaker placement Allergies: Denied Social: States he smokes 2-3 joints a day for the last 65 years, refers he drinks 312 Oz cans of beer daily since he was 17, denies any tobacco use. States he lives alone. Patient was seen today at bedside. Labs and chart reviewed. Blood culture no growth so far. Uterine culture preliminary< 64758 CFU/ml. CT head shows no evidence of an acute fracture or malalignment. CT head shows no evidence of acute intracranial abnormality. He was admitted for further work up and monitoring. Objective vital signs Vital Sign Date Time Temp Pulse Resp B/P (MAP) Pulse Ox O2 Delivery O2 Flow Rate FiO2 06/24/25 12:29 97.9 80 18 146/105 (119) 98 97.9 06/23/25 20:00 Room Air* 0 21 Total Intake and Output 06/23/25 06/23/25 06/24/25 15:00 23:00 07:00 Intake Total 50 ml 610 ml 440 ml Output Total 200 ml 150 ml 1000 ml Balance -150 ml 460 ml -560 ml medications Current Medications Medications Dose Ordered Sig/Charissa Route Start Time Stop Time Status Last Admin Dose Admin Atorvastatin Calcium 40 mg HS PO 06/23/25 22:00 06/23/25 22:02 40 MG Empaglifozin 10 mg DAILY PO 06/23/25 10:00 06/24/25 10:04 10 MG Spironolactone 25 mg DAILY PO 06/23/25 10:00 06/24/25 10:04 25 MG Lisinopril 40 mg DAILY PO 06/23/25 10:00 06/24/25 10:04 40 MG Metoprolol Succinate 25 mg DAILY PO 06/23/25 10:00 06/24/25 10:04 25 MG Pneumococcal Polyvalent Vaccine 25 mcg ONCE IM 06/23/25 03:45 UNV Aspirin 81 mg DAILY PO 06/23/25 10:00 06/24/25 10:04 81 MG Enoxaparin Sodium 70 mg Q12HR SC 06/23/25 22:00 Piperacillin Sod/ Tazobactam Sod 100 ml @ 25 mls/hr Q8HR@0500,1300,2100 IV 06/25/25 05:00 Pantoprazole Sodium 40 mg DAILY@0600 PO 06/24/25 06:00 06/24/25 06:02 40 MG Acetaminophen/ Hydrocodone Bitart 1 tab Q6HPRN PRN PO 06/23/25 20:45 06/23/25 22:03 1 TAB Examination General examination- awake, alert, oriented HEENT- PEERLA, no acute nasal discharge Cardiovascular- S1-S2 audible, rate and rhythm regular, no murmur Respiratory- CTAB, no wheeze or rhonchi Gastrointestinal-nontender, bowel sound+. Nondistended Musculoskeletal-no acute joint swelling or tenderness or redness Lower extremity- no leg edema Neurological- cranial nerves intact, no acute dysarthria or dysphagia Psychiatry- denies depression or SI or HI Skin- no acute rash or purpura laboratory and microbiology Laboratory Tests 06/24/25 04:39 Test 06/24/25 04:39 Range/Units Serum Glucose 99 74-106 mg/dL Microbiology Date/Time Source Procedure Growth Status 06/23/25 03:00 Voided Urine Urine Culture - Preliminary Resulted 06/22/25 17:00 Blood Blood Culture - Preliminary NO GROWTH AFTER 24 HOURS OF INCUBATION. 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 Acute mesenteric ischemia #Acute versus chronic splenic infarction #? Septic emboli #Sepsis ? Unknown source of infection ? UTI #Atrial fibrillation, status post pacemaker #Chronic HFrEF #NSTEMI type 2 due to sepsis #Coronary artery disease with history of PCI with one BRAD #Splenomegaly -continue IV antibiotic with Zosyn 3.375 mg IV Q eight, pending blood culture and urine culture. -Continue therapeutic Lovenox I mg/kg b.i.d., underlying atrial fibrillation, possible acute mesenteric ischemia, splenic infarction. Possible IR intervention. -Hold IV fluids, currently holding blood pressure, continue to monitor vitals for possible worsening sepsis -ordered echocardiogram given history of HFrEF -Continue home medication lisinopril 40 mg p.o. daily, metoprolol XL succinate 25 mg p.o. daily, spironolactone 25 mg p.o. daily, Jardiance 10 mg p.o. daily. -Continue aspirin 81 mg p.o. daily, atorvastatin 40 mg p.o. daily. #Cholelithiasis # Left posterior renal mass size 6.5 cm into 5 cm - we will continue workup to rule out malignant #Marijuana user -patient was counseled about the effect of substance abuse on health #History of femoral intertrochanteric fracture, status post closed reduction nail insertion. -continue current conservative management -PUD prophylaxis with Protonix -DVT prophylaxis with enoxaparin Goals of care discussed greater than 24 minutes, full code status. Plan discussed with Dr. Zambrano Plan discussed with: Patient, Other RN Plan discussed with: Patient, Other (RN) Date of Service: Jun 24, 2025 Billing Provider: JOSE ZAMBRANO MD Common Visit Codes: [id number] INP/OBS CARE(HIGH) Date of Service: Jun 24, 2025 Billing Provider: JOSE ZAMBRANO MD,[facility] RESIDENT Jun 24, 2025 14:33
--- NOTE | 2025-06-24 21:37 | DVHSR ---
APPROVED REPORT EXAM: Two-dimensional and M-mode echocardiogram with Doppler and color Doppler. Blood Pressure: 157/104 mmHg INDICATION Septic emboli? RISK FACTORS Height: 5'4", Weight: 147 DIMENSIONS LVDd (3.8-5.7cm)LA (2D)5.3 (1.9-4.0cm)Aortic Root (2.0-3.7cm) EF (%) 25.0 (55-70%)Rt. Atrium5.3 (1.9-4.0cm)Asc. Aorta cm IVSd (0.7-1.1cm)RV (D)4.0 (1.8-2.4cm) Mitral Valve MitralMitral Stenosis E wave1.05m/sMV Mean GR.mmHg E/A ratio0.02D MVAcm2 Aortic Valve Aortic ValveAortic Stenosis V10.67m/Francisco Mean GR.3mmHg V21.21m/Francisco Peak GR.6mmHg LVOT Diameter1.9 (1.8-2.4cm)Doppler AVA1.57cm2 Tricuspid Valve TR Velocity2.84m/s [id number] Other Information Technically limited study due to body habitus. Conclusion MODERATE DEGREE LVH AND MODERATE DEGREE LV DIASTOLIC DYSFUNCTION LV EF IS 25% AND IS MODERATELY REDUCED SYSTOLIC AND DIASTOLIC LV DYSFUNCTION DILATED ALL CARDIAC CHAMBERS AND ARE HYPOKINETIC IT IS DILATED CARDIOMYOPATHY MODERATE DEGREE PULMONARY HYPERTENSION RVSP IS 47 MM OF HG AND IS MODERATELY HIGH NO EFFUSION
[2025-06-25] VITALS (8 sets, daily range): BP systolic 125–162; BP diastolic 63–114; PULSE 58–92; RESP 18–20; TEMP 97.6–98.6; O2SAT 94–98
[2025-06-25] MEDS: MELATONIN 5 MG TAB PO ONE (03:05)
[2025-06-25] MEDS: PIPERACILLIN-TAZOB 3.375GM 100 ML IV SCH (05:00)
[2025-06-25 09:10] LABS: Hematocrit 54.4 % (41.0-53.0); Hemoglobin 18.2 g/dL (13.5-17.5); Mean Corpuscular Hemoglobin 29.9 pg (28.0-32.0); Mean Corpuscular Volume 89.3 fL (80.0-100.0); Nucleated Red Blood Cells % 0.0 %
[2025-06-25 09:23] LABS: Alanine Aminotransferase 34 U/L (7-40); Albumin 3.9 g/dL (3.2-4.8); Alkaline Phosphatase 96 U/L (46-116); Anion Gap 8 (5-15); BUN/Creatinine Ratio 10.5 (10.0-20.0); Bilirubin, Total 2.7 mg/dL (0.2-1.0); Blood Urea Nitrogen 9 mg/dL (9-23); Calcium 9.2 mg/dL (8.7-10.4); Carbon Dioxide 26 mmol/L (20-31); Chloride 109 mmol/L (98-107); Glucose 137 mg/dL (74-106); Magnesium 1.7 mg/dL (1.6-2.6); Potassium 3.8 mmol/L (3.5-5.1); Sodium 143 mmol/L (136-145); Total Protein 6.8 g/dL (5.7-8.2)
[2025-06-25 10:27] LABS: Hepatitis C Antibody Negative (Negative)
--- NOTE | 2025-06-25 14:16 | DVHINCON2 ---
Date of service: Jun 25, [address] Caldwell Reason for Consultation Renal Mass History of Present Illness History Source: RN Notes, MD Notes, Old Records Exam Limitations: No limitations HPI 79-year-old male with prior medical history of hypertension, atrial fibrillation s/p pacemaker placement, CAD, CHF, CT s/p PCI with 1 BRAD, and right femoral neck fracture s/p ORIF in May 2024, who presents today with chief complaint of right leg weakness. The patient states he usually ambulates utilizing a walker or cane with little difficulty, however he woke up today with weakness and inability to bear weight on his right leg. additionally refers intermittent dull pain in right hip, nonradiating, intensity 5/10, without relieving or aggravating factors. He states this pain was usually present, however he noticed it more today. He denies fever, nausea, vomiting, contralateral weakness, cough, chest pain, dysuria, or other symptoms. Urology consulted for finding of renal mass on CT Home Meds Active Scripts Empagliflozin (Jardiance) 10 Mg Tab, 10 MG PO DAILY for 30 Days, #30 TAB 2 [facility]il ls [facility]24 Spironolactone (Spironolactone) 25 Mg Tab, 1 TAB PO DAILY for 30 Days, #30 TAB 2 Refills Prov:[facility] 05/20/24 Apixaban Base (ELIQUIS) 5 Mg Tab, 2.5 MG PO BID for 30 Days, #30 TAB 0 Refills Prov[facility] 05/20/24 Metoprolol Succinate (Metoprolol Succinate Er) 25 Mg Tab, 25 MG PO DAILY for 30 Days, #30 TAB 0 Refills Prov:[facility] 05/20/24 Bacitracin (Bacitracin Oint) 1 Applic Ap, 1 APPLIC TOP BID for 5 Days, #1 APPLIC 0 Refills Prov:[facility] 05/20/24 Acetaminophen (Acetaminophen) 325 Mg Tab, 325 MG PO Q8HP PRN for 7 Days, #21 TAB 0 Refills Prov:[facility] 05/20/24 Clopidogrel Bisulfate (CLOPIDOGREL) 75 Mg Tab, 75 MG PO DAILY for 30 Days, #30 TAB Prov:YUE WHITE MD 04/02/23 Atorvastatin Calcium (ATORVASTATIN CALCIUM) 20 Mg Tab, 40 MG PO HS for 30 Days, #30 TAB Prov:YUE WHITE MD 10/26/22 Lisinopril (Lisinopril) 40 Mg Tab, 40 MG PO DAILY for 30 Days, #30 TAB Prov:YUE WHITE MD 10/26/22 Past Medical History Patient Family History: Diabetes mellitus G8 BROTHER FH: cancer G8 FATHER G8 BROTHER Review of Systems Constitutional: No symptom reported Ears, Nose, & Throat: No symptom reported Eyes: No symptom reported Pulmonary/Respiratory: No symptom reported Cardiovascular: No symptom reported Gastrointestinal: No symptom reported Genitourinary: No symptom reported Musculoskeletal: No symptom reported Skin: No symptom reported Psychiatric: No symptom reported Endocrine: No symptom reported Hemotologic/Lymphatic: No symptom reported H&P Exam Vital Signs Vital Signs Date Time Temp Pulse Resp B/P (MAP) Pulse Ox O2 Delivery O2 Flow Rate FiO2 06/25/25 13:32 162/93 06/25/25 10:52 89 06/25/25 08:38 97.6 18 95 97.6 06/24/25 20:00 Room Air* 0 21 Labs/Xrays Labs Test 06/25/25 08:50 06/24/25 04:39 06/23/25 20:51 06/23/25 20:03 Range/Units White Blood Count 22.0 #H 4.4-10.8 10^3/uL Red Blood Count 6.08 H 4.5-5.90 10^6/uL Hemoglobin 18.2 H 13.5-17.5 g/dL Hematocrit 54.4 H 41.0-53.0 % Mean Corpuscular Volume 89.3 80.0-100.0 fL Mean Corpuscular Hemoglobin 29.9 28.0-32.0 pg Mean Corpuscular Hemoglobin Concent 33.5 32.0-36.0 g/dL Red Cell Distribution Width 21.8 H 11.8-14.3 % Platelet Count 472 H 140-450 10^3/uL Mean Platelet Volume 9.1 6.9-10.8 fL Neutrophils (%) (Auto) 87.5 H 37.0-80.0 % Lymphocytes (%) (Auto) 4.6 L 10.0-50.0 % Monocytes (%) (Auto) 3.9 0.0-12.0 % Eosinophils (%) (Auto) 2.7 0.0-7.0 % Basophils (%) (Auto) 1.3 0.0-2.0 % Neutrophils # (Auto) 19.3 H 1.6-8.6 10 ^3/uL Lymphocytes # (Auto) 1.0 0.4-5.4 10 ^3/uL Monocytes # (Auto) 0.9 0-1.3 10 ^3/uL Eosinophils # (Auto) 0.6 0-0.8 10 ^3/uL Basophils # (Auto) 0.3 H 0-0.2 10 ^3/uL Nucleated Red Blood Cells 0.0 % Sodium Level 143 136-145 mmol/L Potassium Level 3.8 3.5-5.1 mmol/L Chloride Level 109 H 98-107 mmol/L Carbon Dioxide Level 26 20-31 mmol/L Anion Gap 8 5-15 Blood Urea Nitrogen 9 9-23 mg/dL Creatinine 0.86 0.700-1.30 mg/dL Glomerular Filtration Rate Calc 88 >90 mL/min BUN/Creatinine Ratio 10.5 10.0-20.0 Serum Glucose 137 H 74-106 mg/dL Calcium Level 9.2 8.7-10.4 mg/dL Magnesium Level 1.7 1.6-2.6 mg/dL Total Bilirubin 2.7 H 0.2-1.0 mg/dL Aspartate Amino Transferase (AST) 56 H 13-40 U/L Alanine Aminotransferase (ALT) 34 7-40 U/L Alkaline Phosphatase 96 46-116 U/L Total Protein 6.8 5.7-8.2 g/dL Albumin 3.9 3.2-4.8 g/dL Platelet Estimate Adequate Anisocytosis (manual) Moderate Lactic Acid Level 1.5 0.4-2.0 mmol/L Prothrombin Time 13.2 H 9.3-11.8 sec Prothrombin Time INR 1.28 H 0.9-1.15 Activated Partial Thromboplast Time 33.0 24.5-34.5 SEC Test 06/23/25 05:40 06/23/25 03:00 06/22/25 20:35 06/22/25 15:34 Range/Units Creatine Kinase 229 H 46-171 U/L Hepatitis B Surface Antibody Positive H Negative Hepatitis C Antibody Negative Negative Urine Color Yellow Yellow Urine Clarity Clear Clear Urine pH 6.5 5.0-9.0 Urine Specific [place] 1.011 1.001-1.035 Urine Protein 2+ H Negative Urine Ketones Negative Negative Urine Blood Negative Negative /uL Urine Nitrite Negative Negative Urine Bilirubin Negative Negative Urine Urobilinogen Normal Negative mg/dL Urine Leukocyte Esterase Negative Negative /uL Urine RBC 1 0 - 3 /hpf Urine Microscopic WBC 3 0-3 /HPF Urine Squamous Epithelial Cells None seen <5 /hpf Urine Bacteria None seen None Seen /hpf Urine Glucose Normal Normal mg/dL Urine Opiates Screen Neg NEGATIVE Urine Fentanyl Screen Neg NEGATIVE Urine Barbiturates Screen Neg NEGATIVE Urine Phencyclidine Screen Neg NEGATIVE Urine Amphetamines Screen Neg NEGATIVE Urine Benzodiazepines Screen Neg NEGATIVE Urine Cocaine Screen Neg NEGATIVE Urine Cannabinoids Screen Pos NEGATIVE Direct Bilirubin 0.6 H <0.3 mg/dL Troponin I High Sensitivity 302 *H </=54 ng/L Hemoglobin A1c 5.2 <5.7 % A1C Phosphorus Level 2.8 2.4-5.1 mg/dL Vitamin B12 Level 425 211-911 pg/mL Vitamin D 25-Hydroxy 22.8 L 30.0-100 ng/mL Thyroid Stimulating Hormone (TSH) 1.65 0.55-4.78 uIU/mL Microbiology Date/Time Source Procedure Growth Status 06/23/25 03:00 Voided Urine Urine Culture - Final Complete 06/22/25 17:00 Blood Blood Culture - Preliminary NO GROWTH AFTER 48 HOURS OF INCUBATION. Resulted Assessment/Plan Problem List: (1) Renal mass (2) Mesenteric ischemia Plan refer pt to [facility] for nephrectomy. He requires [facility] facility given complex medical history. urology signing off Plan discussed with: FABIANA Davison NP Jun 25, 2025 14:16
[2025-06-25 16:02] LABS: Hepatitis A Total Antibody Positive (Negative); Hepatitis B Surface Antigen Negative (Negative); Hepatitis C Antibody Negative (Negative)
--- NOTE | 2025-06-25 16:10 | DVHINCON2 ---
Date of service: Jun 25, 2025 History of Present Illness 79 yo M with end stage HF, ef 25%, non complinace, hx of etoh abuse, hx of pacer admitted for abd pain. pt found to have renal mass. Past Medical History reviewed Family History: Diabetes mellitus G8 BROTHER FH: cancer G8 FATHER G8 BROTHER Allergies: Coded Allergies: NO KNOWN ALLERGIES (Unverified , 11/18/22) Home Meds Active Scripts Empagliflozin (Jardiance) 10 Mg Tab, 10 MG PO DAILY for 30 Days, #30 TAB 2 Refil ls Prov:[facility] 05/20/24 Spironolactone (Spironolactone) 25 Mg Tab, 1 TAB PO DAILY for 30 Days, #30 TAB 2 [facility]ills Prov:[facility] 05/20/24 Apixaban Base (ELIQUIS) 5 Mg Tab, 2.5 MG PO BID for 30 Days, #30 TAB 0 [facility]/24 Metoprolol Succinate (Metoprolol Succinate Er) 25 Mg Tab, 25 MG PO DAILY for 30 Days, #30 TAB 0 [facility] 05/20/24 Bacitracin (Bacitracin Oint) 1 Applic Ap, 1 APPLIC TOP BID for 5 Days, #1 APPLIC 0 [facility]ills [facility] 05/20/24 Acetaminophen (Acetaminophen) 325 Mg Tab, 325 MG PO Q8HP PRN for 7 Days, #21 TAB 0 [facility]ills [facility] 05/20/24 Clopidogrel Bisulfate (CLOPIDOGREL) 75 Mg Tab, 75 MG PO DAILY for 30 Days, #30 TAB Prov:YUE WHITE MD 04/02/23 Atorvastatin Calcium (ATORVASTATIN CALCIUM) 20 Mg Tab, 40 MG PO HS for 30 Days, #30 TAB Prov:YUE WHITE MD 10/26/22 Lisinopril (Lisinopril) 40 Mg Tab, 40 MG PO DAILY for 30 Days, #30 TAB Prov:YUE WHITE MD 10/26/22 Current Medications Current Medications Medications (Trade) Dose Ordered Sig/Charissa Route PRN Reason Start Time Stop Time Status Last Admin Piperacillin Sod/ Tazobactam Sod 100 ml @ 25 mls/hr Q8HR@0500,1300,2100 IV 06/25/25 05:00 06/25/25 13:41 Amlodipine Besylate (Norvasc Tablet) 5 mg DAILY PO 06/24/25 20:45 06/25/25 10:53 Review of Systems +weakness +sob Vital Signs Vital Signs Date Time Temp Pulse Resp B/P (MAP) Pulse Ox O2 Delivery O2 Flow Rate FiO2 06/25/25 13:32 162/93 06/25/25 13:00 98.1 92 18 94 98.1 06/24/25 20:00 Room Air* 0 21 Physical Exam nad s1 s2 irregular diffuse rhonchi abd soft Labs/Diagnostic Data Labs Test 06/25/25 08:50 06/24/25 04:39 06/23/25 20:51 06/23/25 20:03 Range/Units White Blood Count 22.0 #H 4.4-10.8 10^3/uL Red Blood Count 6.08 H 4.5-5.90 10^6/uL Hemoglobin 18.2 H 13.5-17.5 g/dL Hematocrit 54.4 H 41.0-53.0 % Mean Corpuscular Volume 89.3 80.0-100.0 fL Mean Corpuscular Hemoglobin 29.9 28.0-32.0 pg Mean Corpuscular Hemoglobin Concent 33.5 32.0-36.0 g/dL Red Cell Distribution Width 21.8 H 11.8-14.3 % Platelet Count 472 H 140-450 10^3/uL Mean Platelet Volume 9.1 6.9-10.8 fL Neutrophils (%) (Auto) 87.5 H 37.0-80.0 % Lymphocytes (%) (Auto) 4.6 L 10.0-50.0 % Monocytes (%) (Auto) 3.9 0.0-12.0 % Eosinophils (%) (Auto) 2.7 0.0-7.0 % Basophils (%) (Auto) 1.3 0.0-2.0 % Neutrophils # (Auto) 19.3 H 1.6-8.6 10 ^3/uL Lymphocytes # (Auto) 1.0 0.4-5.4 10 ^3/uL Monocytes # (Auto) 0.9 0-1.3 10 ^3/uL Eosinophils # (Auto) 0.6 0-0.8 10 ^3/uL Basophils # (Auto) 0.3 H 0-0.2 10 ^3/uL Nucleated Red Blood Cells 0.0 % Sodium Level 143 136-145 mmol/L Potassium Level 3.8 3.5-5.1 mmol/L Chloride Level 109 H 98-107 mmol/L Carbon Dioxide Level 26 20-31 mmol/L Anion Gap 8 5-15 Blood Urea Nitrogen 9 9-23 mg/dL Creatinine 0.86 0.700-1.30 mg/dL Glomerular Filtration Rate Calc 88 >90 mL/min BUN/Creatinine Ratio 10.5 10.0-20.0 Serum Glucose 137 H 74-106 mg/dL Calcium Level 9.2 8.7-10.4 mg/dL Magnesium Level 1.7 1.6-2.6 mg/dL Total Bilirubin 2.7 H 0.2-1.0 mg/dL Aspartate Amino Transferase (AST) 56 H 13-40 U/L Alanine Aminotransferase (ALT) 34 7-40 U/L Alkaline Phosphatase 96 46-116 U/L Total Protein 6.8 5.7-8.2 g/dL Albumin 3.9 3.2-4.8 g/dL Hepatitis A Antibody Total Positive H Negative Hepatitis B Surface Antigen Negative Negative Hepatitis B Surface Antibody Positive H Negative Hepatitis B Core Total Antibody Positive H Negative Hepatitis C Antibody Negative Negative Platelet Estimate Adequate Anisocytosis (manual) Moderate Lactic Acid Level 1.5 0.4-2.0 mmol/L Prothrombin Time 13.2 H 9.3-11.8 sec Prothrombin Time INR 1.28 H 0.9-1.15 Activated Partial Thromboplast Time 33.0 24.5-34.5 SEC Test 06/23/25 05:40 06/23/25 03:00 06/22/25 20:35 06/22/25 15:34 Range/Units Creatine Kinase 229 H 46-171 U/L Urine Color Yellow Yellow Urine Clarity Clear Clear Urine pH 6.5 5.0-9.0 Urine Specific [place] 1.011 1.001-1.035 Urine Protein 2+ H Negative Urine Ketones Negative Negative Urine Blood Negative Negative /uL Urine Nitrite Negative Negative Urine Bilirubin Negative Negative Urine Urobilinogen Normal Negative mg/dL Urine Leukocyte Esterase Negative Negative /uL Urine RBC 1 0 - 3 /hpf Urine Microscopic WBC 3 0-3 /HPF Urine Squamous Epithelial Cells None seen <5 /hpf Urine Bacteria None seen None Seen /hpf Urine Glucose Normal Normal mg/dL Urine Opiates Screen Neg NEGATIVE Urine Fentanyl Screen Neg NEGATIVE Urine Barbiturates Screen Neg NEGATIVE Urine Phencyclidine Screen Neg NEGATIVE Urine Amphetamines Screen Neg NEGATIVE Urine Benzodiazepines Screen Neg NEGATIVE Urine Cocaine Screen Neg NEGATIVE Urine Cannabinoids Screen Pos NEGATIVE Direct Bilirubin 0.6 H <0.3 mg/dL Troponin I High Sensitivity 302 *H </=54 ng/L Hemoglobin A1c 5.2 <5.7 % A1C Phosphorus Level 2.8 2.4-5.1 mg/dL Vitamin B12 Level 425 211-911 pg/mL Vitamin D 25-Hydroxy 22.8 L 30.0-100 ng/mL Thyroid Stimulating Hormone (TSH) 1.65 0.55-4.78 uIU/mL Microbiology Date/Time Source Procedure Growth Status 06/23/25 03:00 Voided Urine Urine Culture - Final Complete 06/22/25 17:00 Blood Blood Culture - Preliminary NO GROWTH AFTER 48 HOURS OF INCUBATION. Resulted Assessment severe chf with low EF preop eval cad s/p pci hx of afib hx of ppm Plan/Recommendation pt is sp single chamber PPM for sick sinus ecg shows intermittent V pacing, st depressins inferiorly sp pci to DIag 3-4 years ago pt is HIGH risk for a highly complex urologic surgery at this hospital, pt will likely be transferred to tertiary care center pt hasnt had device checked in over a year, not seeing cards regularly biotronic device, if pt not tx, then can get device check here or elsewhere Plan discussed with: Patient, Other (rn) NEIL HERNANDEZ MD Jun 25, 2025 16:10
--- NOTE | 2025-06-25 16:44 | DVHPNRES ---
Progress Note Date Seen: Jun 25, 2025 Resident Creating Document: MARCUS DRAKE RESIDENT Medical Necessity Reason Pt with a Central, PICC or Fol: No Subjective Review of Systems Mr. Woodall is a 79-year-old male with prior medical history of hypertension, atrial fibrillation s/p pacemaker placement, CAD, CHF, [place] s/p PCI with 1 BRAD, and right femoral neck fracture s/p ORIF in May 2024, who presents today with chief complaint of right leg weakness. The patient states he usually ambulates utilizing a walker or cane with little difficulty, however he woke up today with weakness and inability to bear weight on his right leg. additionally refers intermittent dull pain in right hip, nonradiating, intensity 5/10, without relieving or aggravating factors. He states this pain was usually present, however he noticed it more today. He denies fever, nausea, vomiting, contralateral weakness, cough, chest pain, dysuria, or other symptoms. due to persistent symptoms he sought medical attention at the emergency department. On evaluation in the ED, the patient was in mild distress, hypertensive, other vitals within normal range. Twelve lead EKG shows AFib with V placed complexes, Prolonged QTC, and nonspecific ST changes. Initial labs show WBCs 20.2 with neutrophilia, hypokalemia, and elevated flat trending troponins, UDS positive for cannabinoids. CT head shows no evidence of an acute fracture or malalignment. CT head shows no evidence of acute intracranial abnormality. He was admitted for further work up and monitoring. Personal history: HFrEF, CAD, Atrial fibrillation s/p pacemaker placement, [place] s/p PCI x 1 BRAD and right femoral neck fracture s/p ORIF in May 2024 Surgical history: ORIF of right femoral head May 2024, pacemaker placement Allergies: Denied Social: States he smokes 2-3 joints a day for the last 65 years, refers he drinks 312 Oz cans of beer daily since he was 17, denies any tobacco use. States he lives alone. Patient was seen today at bedside. Labs and chart reviewed. Patient was seen by Urologist, recommended to refer patient to [facility] for nephrectomy. He requires HLOC facility given complex medical history. Patient was also seen by Cardiology for cardiac clearance. As per Cardiology patient is is HIGH risk for a highly complex urologic surgery at this hospital, pt hasnt had device checked in over a year, not seeing cards regularly, biotronic device, if pt not tx, then can get device check here or elsewhere. Objective vital signs Vital Sign Date Time Temp Pulse Resp B/P (MAP) Pulse Ox O2 Delivery O2 Flow Rate FiO2 06/25/25 13:32 162/93 06/25/25 13:00 98.1 92 18 94 98.1 06/24/25 20:00 Room Air* 0 21 Total Intake and Output 06/24/25 06/24/25 06/25/25 15:00 23:00 07:00 Intake Total 720 ml 600 ml Output Total 1100 ml 500 ml Balance -380 ml 100 ml medications Current Medications Medications Dose Ordered Sig/Charissa Route Start Time Stop Time Status Last Admin Dose Admin Atorvastatin Calcium 40 mg HS PO 06/23/25 22:00 06/24/25 22:11 40 MG Empaglifozin 10 mg DAILY PO 06/23/25 10:00 06/25/25 10:52 10 MG Spironolactone 25 mg DAILY PO 06/23/25 10:00 06/25/25 10:50 25 MG Lisinopril 40 mg DAILY PO 06/23/25 10:00 06/25/25 13:32 40 MG Metoprolol Succinate 25 mg DAILY PO 06/23/25 10:00 06/25/25 10:52 25 MG Pneumococcal Polyvalent Vaccine 25 mcg ONCE IM 06/23/25 03:45 UNV Aspirin 81 mg DAILY PO 06/23/25 10:00 06/25/25 10:52 81 MG Enoxaparin Sodium 70 mg Q12HR SC 06/23/25 22:00 06/25/25 10:54 70 MG Piperacillin Sod/ Tazobactam Sod 100 ml @ 25 mls/hr Q8HR@0500,1300,2100 IV 06/25/25 05:00 06/25/25 13:41 25 MLS/HR Pantoprazole Sodium 40 mg DAILY@0600 PO 06/24/25 06:00 06/25/25 05:45 40 MG Acetaminophen/ Hydrocodone Bitart 1 tab Q6HPRN PRN PO 06/23/25 20:45 06/24/25 20:57 1 TAB Amlodipine Besylate 5 mg DAILY PO 06/24/25 20:45 06/25/25 10:53 5 MG Examination General examination- awake, alert, oriented HEENT- PEERLA, no acute nasal discharge Cardiovascular- S1-S2 audible, rate and rhythm regular, no murmur Respiratory- CTAB, no wheeze or rhonchi Gastrointestinal-nontender, bowel sound+. Nondistended Musculoskeletal-no acute joint swelling or tenderness or redness Lower extremity- no leg edema Neurological- cranial nerves intact, no acute dysarthria or dysphagia Psychiatry- denies depression or SI or HI Skin- no acute rash or purpura laboratory and microbiology Laboratory Tests 06/25/25 08:50 Test 06/25/25 08:50 Range/Units Serum Glucose 137 H 74-106 mg/dL Microbiology Date/Time Source Procedure Growth Status 06/23/25 03:00 Voided Urine Urine Culture - Final Complete 06/22/25 17:00 Blood Blood Culture - Preliminary NO GROWTH AFTER 48 HOURS OF INCUBATION. 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 Acute mesenteric ischemia #Acute versus chronic splenic infarction #? Septic emboli #Sepsis ? Unknown source of infection ? UTI #Atrial fibrillation, status post pacemaker #Chronic HFrEF #NSTEMI type 2 due to sepsis #Coronary artery disease with history of PCI with one BRAD #Splenomegaly -continue IV antibiotic with Zosyn 3.375 mg IV Q eight, pending blood culture and urine culture. -Continue therapeutic Lovenox I mg/kg b.i.d., underlying atrial fibrillation, possible acute mesenteric ischemia, splenic infarction. Possible IR intervention. -Hold IV fluids, currently holding blood pressure, continue to monitor vitals for possible worsening sepsis -ordered echocardiogram given history of HFrEF -Continue home medication lisinopril 40 mg p.o. daily, metoprolol XL succinate 25 mg p.o. daily, spironolactone 25 mg p.o. daily, Jardiance 10 mg p.o. daily. -Continue aspirin 81 mg p.o. daily, atorvastatin 40 mg p.o. daily -.Urologist, recommended to refer patient to [facility] for nephrectomy. He requires HLOC facility given complex medical history. - Patient was also seen by Cardiology for cardiac clearance. As per Cardiology patient is is HIGH risk for a highly complex urologic surgery at this hospital, pt hasnt had device checked in over a year, not seeing cards regularly, biotronic device, if pt not tx, then can get device check here or elsewhere. #Cholelithiasis # Left posterior renal mass size 6.5 cm into 5 cm - we will continue workup to rule out malignant #Marijuana user -patient was counseled about the effect of substance abuse on health #History of femoral intertrochanteric fracture, status post closed reduction nail insertion. -continue current conservative management -PUD prophylaxis with Protonix -DVT prophylaxis with enoxaparin Goals of care discussed greater than 24 minutes, full code status. Plan discussed with Dr. Zambrano Plan discussed with: Patient, Other RN Plan discussed with: Patient, Other (RN) Date of Service: Jun 25, 2025 Billing Provider: JOSE ZAMBRANO MD, MOHAMMED RESIDENT Jun 25, 2025 16:44
[2025-06-26] VITALS (7 sets, daily range): BP systolic 116–159; BP diastolic 74–131; PULSE 66–84; RESP 17–20; TEMP 36.6; O2SAT 93–98
[2025-06-26 12:16] LABS: Hematocrit 49.9 % (41.0-53.0); Hemoglobin 16.6 g/dL (13.5-17.5); Mean Corpuscular Hemoglobin 29.9 pg (28.0-32.0); Mean Corpuscular Volume 89.7 fL (80.0-100.0); Nucleated Red Blood Cells % 0.2 %
[2025-06-26 12:33] LABS: Alanine Aminotransferase 31 U/L (7-40); Albumin 3.4 g/dL (3.2-4.8); Alkaline Phosphatase 93 U/L (46-116); Anion Gap 10 (5-15); BUN/Creatinine Ratio 15.3 (10.0-20.0); Blood Urea Nitrogen 13 mg/dL (9-23); Calcium 8.9 mg/dL (8.7-10.4); Carbon Dioxide 28 mmol/L (20-31); Chloride 103 mmol/L (98-107); Potassium 4.6 mmol/L (3.5-5.1); Sodium 141 mmol/L (136-145); Total Protein 5.8 g/dL (5.7-8.2)
[2025-06-26 12:38] LABS: Bilirubin, Total 2.1 mg/dL (0.2-1.0); Glucose 132 mg/dL (74-106)
[2025-06-26] MEDS ORDERED: CEFP200T15 PO (13:54)
[2025-06-26] MEDS ORDERED: IBUP-1453 PO (13:54)
[2025-06-26] MEDS ORDERED: PANT40T PO (13:54)
[2025-06-26] MEDS ORDERED: MET500T PO (13:54)
--- NOTE | 2025-06-26 16:58 | DVHDSRES ---
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 Acute mesenteric ischemia #Acute versus chronic splenic infarction Labs/Diagnostic Data: Laboratory Results Test 06/26/25 10:05 06/25/25 08:50 06/24/25 04:39 06/23/25 20:51 White Blood Count 21.1 10^3/uL (4.4-10.8) Red Blood Count 5.56 10^6/uL (4.5-5.90) Hemoglobin 16.6 g/dL (13.5-17.5) Hematocrit 49.9 % (41.0-53.0) Mean Corpuscular Volume 89.7 fL (80.0-100.0) Mean Corpuscular Hemoglobin 29.9 pg (28.0-32.0) Mean Corpuscular Hemoglobin Concent 33.3 g/dL (32.0-36.0) Red Cell Distribution Width 21.4 % (11.8-14.3) Platelet Count 427 10^3/uL (140-450) Mean Platelet Volume 9.3 fL (6.9-10.8) Neutrophils (%) (Auto) 89.0 % (37.0-80.0) Lymphocytes (%) (Auto) 2.9 % (10.0-50.0) Monocytes (%) (Auto) 3.6 % (0.0-12.0) Eosinophils (%) (Auto) 1.8 % (0.0-7.0) Basophils (%) (Auto) 2.7 % (0.0-2.0) Neutrophils # (Auto) 18.8 10 ^3/uL (1.6-8.6) Lymphocytes # (Auto) 0.6 10 ^3/uL (0.4-5.4) Monocytes # (Auto) 0.8 10 ^3/uL (0-1.3) Eosinophils # (Auto) 0.4 10 ^3/uL (0-0.8) Basophils # (Auto) 0.6 10 ^3/uL (0-0.2) Nucleated Red Blood Cells 0.2 % Sodium Level 141 mmol/L (136-145) Potassium Level 4.6 mmol/L (3.5-5.1) Chloride Level 103 mmol/L (98-107) Carbon Dioxide Level 28 mmol/L (20-31) Anion Gap 10 (5-15) Blood Urea Nitrogen 13 mg/dL (9-23) Creatinine 0.85 mg/dL (0.700-1.30) Glomerular Filtration Rate Calc 88 mL/min (>90) BUN/Creatinine Ratio 15.3 (10.0-20.0) Serum Glucose 132 mg/dL (74-106) Calcium Level 8.9 mg/dL (8.7-10.4) Total Bilirubin 2.1 mg/dL (0.2-1.0) Aspartate Amino Transferase (AST) 43 U/L (13-40) Alanine Aminotransferase (ALT) 31 U/L (7-40) Alkaline Phosphatase 93 U/L (46-116) Total Protein 5.8 g/dL (5.7-8.2) Albumin 3.4 g/dL (3.2-4.8) Magnesium Level 1.7 mg/dL (1.6-2.6) Hepatitis A Antibody Total Positive (Negative) Hepatitis B Surface Antigen Negative (Negative) Hepatitis B Surface Antibody Positive (Negative) Hepatitis B Core Total Antibody Positive (Negative) Hepatitis C Antibody Negative (Negative) Platelet Estimate Adequate Anisocytosis (manual) Moderate Lactic Acid Level 1.5 mmol/L (0.4-2.0) Test 06/23/25 20:03 06/23/25 05:40 06/23/25 03:00 06/22/25 20:35 Prothrombin Time 13.2 sec (9.3-11.8) Prothrombin Time INR 1.28 (0.9-1.15) Activated Partial Thromboplast Time 33.0 SEC (24.5-34.5) Creatine Kinase 229 U/L (46-171) Urine Color Yellow (Yellow) Urine Clarity Clear (Clear) Urine pH 6.5 (5.0-9.0) Urine Specific [place] 1.011 (1.001-1.035) Urine Protein 2+ (Negative) Urine Ketones Negative (Negative) Urine Blood Negative /uL (Negative) Urine Nitrite Negative (Negative) Urine Bilirubin Negative (Negative) Urine Urobilinogen Normal mg/dL (Negative) Urine Leukocyte Esterase Negative /uL (Negative) Urine RBC 1 /hpf (0 - 3) Urine Microscopic WBC 3 /HPF (0-3) Urine Squamous Epithelial Cells None seen /hpf (<5) Urine Bacteria None seen /hpf (None Seen) Urine Glucose Normal mg/dL (Normal) Urine Opiates Screen Neg (NEGATIVE) Urine Fentanyl Screen Neg (NEGATIVE) Urine Barbiturates Screen Neg (NEGATIVE) Urine Phencyclidine Screen Neg (NEGATIVE) Urine Amphetamines Screen Neg (NEGATIVE) Urine Benzodiazepines Screen Neg (NEGATIVE) Urine Cocaine Screen Neg (NEGATIVE) Urine Cannabinoids Screen Pos (NEGATIVE) Direct Bilirubin 0.6 mg/dL (<0.3) Troponin I High Sensitivity 302 ng/L (</=54) Test 06/22/25 15:34 Hemoglobin A1c 5.2 % A1C (<5.7) Phosphorus Level 2.8 mg/dL (2.4-5.1) Vitamin B12 Level 425 pg/mL (211-911) Vitamin D 25-Hydroxy 22.8 ng/mL (30.0-100) Thyroid Stimulating Hormone (TSH) 1.65 uIU/mL (0.55-4.78) Other Laboratory Tests 06/26/25 10:05 Brief Hx & Hospital Course: Mr. Woodall is a 79-year-old male with prior medical history of hypertension, atrial fibrillation s/p pacemaker placement, CAD, CHF, DE s/p PCI with 1 BRAD, and right femoral neck fracture s/p ORIF in May 2024, who presents today with chief complaint of right leg weakness. The patient states he usually ambulates utilizing a walker or cane with little difficulty, however he woke up today with weakness and inability to bear weight on his right leg. additionally refers intermittent dull pain in right hip, nonradiating, intensity 5/10, without relieving or aggravating factors. He states this pain was usually present, however he noticed it more today. He denies fever, nausea, vomiting, contralateral weakness, cough, chest pain, dysuria, or other symptoms. due to persistent symptoms he sought medical attention at the emergency department. On evaluation in the ED, the patient was in mild distress, hypertensive, other vitals within normal range. Twelve lead EKG shows AFib with V placed complexes, Prolonged QTC, and nonspecific ST changes. Initial labs show WBCs 20.2 with neutrophilia, hypokalemia, and elevated flat trending troponins, UDS positive for cannabinoids. CT head shows no evidence of an acute fracture or malalignment. CT head shows no evidence of acute intracranial abnormality. Renal ultrasound- 6.3 cm hypoechoic solid-appearing lower pole lesion, concerning for mass. 2.9 cm complex left mid kidney lesion. Recommend renal MRI or CT with and without IV contrast for further evaluation.Gallstones. CT abdomen and pelvis with contrast- Significant complete occlusion of the proximal superior mesenteric artery (3-50). Correlate for bowel ischemia. No portal venous gas. Significant left posterior inferior irregular kidney mass with heterogeneous enhancement measuring 5 x 6.5 cm. Large area of presumed hypoattenuation of the spleen with wedge-shaped appearance measuring 8.7 x 6.4 cm which may represent splenic infarct.Splenomegaly. Patient was also seen by Cardiology for cardiac clearance. As per Cardiology patient is is high risk for a highly complex urologic surgery at this hospital. Patient's pacemaker check was done. Looks good. Patient is being discharged home with a new medication amlodipine 10 mg p.o. daily. Patient was advised to follow up in the discharge clinic, also advised to follow up with the urologist Dr. Mcadams, follow up his PCP. Patient was also advised that he needs to go to the [facility] for nephrectomy after following up with the urologist. Patient verbalized understanding. Patient's meds were sent to the pharmacy electronically. Patient was hemodynamically stable on discharge. Operations or Procedures [place] [address] Ph: [phone] DIAGNOSTIC IMAGING Diagnostic Imaging Report : [id number] Signed PATIENT: LAN WOODALL CACCT: [id number] UNIT: [id number] : 1945 LOC: ER ROOM / BED: / AGE / SEX: 79 / M ADM STATUS: REG ER SERVICE 1302 ORDERING PHYSICIAN: SB FONG MD PROCEDURE(s): RHPCT - CT R HIP WITH OUT CONTRAST REASON: Increased pain rule out dislocation fracture ORDER NUMBER(s): [id number], ACCESSION NUMBER(s): [id number] EXAM: CT CT R HIP WITH OUT CONTRAST INDICATION: Increased pain rule out dislocation fracture TECHNIQUE: Axial images of right hip without contrast have been obtained along with coronal and sagittal reformatted images. All CT scans at this facility use dose modulation, iterative reconstruction, and/or weight based dosing when appropriate to reduce radiation dose to as low as reasonably achievable. COMPARISON: XY R HIP COMPLETE XRAY on DOS: 05/30/24 FINDINGS: BONES: Right cephalomedullary nail fixation persistent visualization of possible trace fracture plane along the right greater trochant multiple areas of heterotopic ossification along the margins of the right lesser trochanter. Degenerative change of the right hip with chondrocalcinosis. MUSCLES: No abnormal attenuation. JOINT SPACES: No joint effusion. TENDONS/LIGAMENTS: Intact. OTHER: Vascular calcifications. IMPRESSION: 1. No CT evidence of an acute fracture. 2. Right cephalomedullary nail fixation with persistent visualization of possible trace fracture plane along the right greater trochanter. 3. Degenerative change of the right hip with chondrocalcinosis. 4. No evidence of dislocation ATED BY: JOSE LUIS HARTLEY MD DICTATED DATE/TIME: 06/22/251437 SIGNED BY: JOSE LUIS HARTLEY MD SIGNED DATE/TIME: 06/22/251437 CC: [place] [address] Ph: [phone] DIAGNOSTIC IMAGING Diagnostic Imaging Report : [id number] Signed PATIENT: LAN WOODALL CACCT: [id number] UNIT: [id number] : 1945 LOC: ER ROOM / BED: / AGE / SEX: 79 / M ADM STATUS: REG ER SERVICE 1509 ORDERING PHYSICIAN: SB FONG MD PROCEDURE(s): HWOCT - HEAD WITHOUT CONTRAST REASON: Rule out stroke ORDER NUMBER(s): [id number], ACCESSION NUMBER(s): [id number] CLINICAL INFORMATION: 79 years old, Male; Rule out stroke. TECHNIQUE: Axial imaging was obtained through the brain without contrast. Coronal and sagittal reformatted images were obtained, reviewed, and stored. Images were reviewed in brain and bone windows. All CT scans at this medical facility are performed using dose modulation techniques as appropriate to a performed exam including the following: Automated exposure control was utilized; adjustment of the MA and/or KV according to patient size; and use of iterative reconstruction technique. CTDIvol = 57.45 mGy DLP = 1017.19 mGy-cm COMPARISON: CT HEAD WITHOUT CONTRAST on DOS: 05/16/24, HEAD WITHOUT CONTRAST on DOS: 10/24/22, HWOCT on DOS: 10/24/22 FINDINGS: There is no acute intracranial hemorrhage. No mass effect or midline shift. Scattered areas of hypoattenuation are seen in the periventricular and subcortical white matter, which are nonspecific but most likely sequelae of small vessel ischemic disease. The ventricles and sulci are within normal limits in size for age. Basal cisterns are patent. The calvarium is similar similar- appearing metallic foreign bodies adjacent to the right mastoid. Mild mucosal thickening of the paranasal sinuses. IMPRESSION: 1. No CT evidence of acute intracranial abnormality. 2. Stable appearing nonacute findings as detailed above. ATED BY: WESLEY AUSTIN DO DICTATED DATE/TIME: 06/22/251551 SIGNED BY: WESLEY AUSTIN DO SIGNED DATE/TIME: 06/22/251551 CC: [place] [address] Ph: [phone] DIAGNOSTIC IMAGING Diagnostic Imaging Report : [id number] Signed PATIENT: LAN WOODALL CACCT: [id number] UNIT: [id number] : 1945 LOC: ER ROOM / BED: / AGE / SEX: 79 / M ADM STATUS: REG ER SERVICE 36 ORDERING PHYSICIAN: RAINA BENZ RESIDENT PROCEDURE(s): CXR1 - CHEST XRAY 1 VIEW REASON: SOB ORDER NUMBER(s): [id number], ACCESSION NUMBER(s): [id number] 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 Significantly changed from 03/31/2023 Lungs: Mildly prominent interstitial disease primarily throughout the right chest Pleura: No effusion. No pneumothorax. Cardiomediastinal contours: UCardiomegaly Bones: No acute osseous abnormality. IMPRESSION: Cardiomegaly Increased interstitial marking in right chest ATED BY: GILA RIZZO Jr., DO DICTATED DATE/TIME: 06/22/252133 SIGNED BY: GILA RIZZO Jr., DO SIGNED DATE/TIME: 06/22/252133 CC: [place] [address] Ph: [phone] DIAGNOSTIC IMAGING Diagnostic Imaging Report : [id number] Signed PATIENT: LAN WOODALL CACCT: [id number] UNIT: [id number] : 1945 LOC: [facility] ROOM / BED: [address] [place] [address] AGE / SEX: 79 / M ADM STATUS: ADM IN SERVICE 9 ORDERING PHYSICIAN: RAINA BENZ RESIDENT PROCEDURE(s): KIDUS - KIDNEY REASON: UTI ORDER NUMBER(s): [id number], ACCESSION NUMBER(s): [id number] CLINICAL HISTORY: UTI TECHNIQUE: Complete ultrasound exam of the kidneys and bladder was performed. COMPARISON: None FINDINGS: The right kidney has normal echogenicity and measures 11.6 cm. There is a 4.6 cm cyst with no evidence for stone. There is no hydronephrosis. The left kidney has normal echogenicity and measures 12.8 cm. There is a 6.3 cm hypoechoic solid-appearing lesion inferiorly. There is a 2.9 cm complex mid kidney lesion. There is a 2.9 cm cyst. There is no hydronephrosis. The gallbladder demonstrates stones. There is trace ascites. The bladder is distended with a volume of 321 mL. IMPRESSION: 6.3 cm hypoechoic solid-appearing lower pole lesion, concerning for mass. 2.9 cm complex left mid kidney lesion. Recommend renal MRI or CT with and without IV contrast for further evaluation. Gallstones. ATED BY: JESSICA MARTINI MD DICTATED DATE/TIME: 06/23/25927 SIGNED BY: JESSICA MARTINI MD SIGNED DATE/TIME: 06/23/25927 CC: [address] [address] Ph: [phone] DIAGNOSTIC IMAGING Diagnostic Imaging Report : [id number] Signed PATIENT: LAN WOODALL CACCT: [id number] UNIT: [id number] : 1945 LOC: [facility] ROOM / BED: [facility] / A AGE / SEX: 79 / M ADM STATUS: ADM IN SERVICE 1604 ORDERING PHYSICIAN: JANET MCADAMS MD PROCEDURE(s): ABPEL - CT AB PELVIS W WO CON-IV ONLY REASON: POSSIBLE RENAL MASS ORDER NUMBER(s): [id number], ACCESSION NUMBER(s): [id number] EXAM: CT CT AB PELVIS W WO CON-IV ONLY HISTORY: POSSIBLE RENAL MASS TECHNIQUE: Volumetric multidetector CT images of the abdomen and pelvis were obtained before and after the administration of intravenous contrast. All CT scans at this facility use dose modulation, iterative reconstruction, and/or weight based dosing when appropriate to reduce radiation dose to as low as reasonably achievable. COMPARISON: XY PELVIS AP on DOS: 05/16/24 FINDINGS: [LOWER CHEST]: Trace right-sided pleural effusion. Peribronchial thickening in bilateral lung bases. Suspected peribronchovascular thickening and/or atelectasis in bilateral lung bases. Mild cardiomegaly. Coronary artery calcifications. [LIVER]: Normal hepatic size without suspicious focal lesion. [GALLBLADDER AND BILIARY TREE]: Cholelithiasis. [SPLEEN]: Large area of presumed hypoattenuation of the spleen with wedge-shaped appearance measuring 8.7 x 6.4 cm which may represent splenic infarct. Splenomegaly. [PANCREAS]: Unremarkable. [ADRENAL GLANDS]: Unremarkable [KIDNEYS]: No hydronephrosis. Significant left posterior inferior irregular kidney mass with heterogeneous enhancement measuring 5 x 6.5 cm. Additional adjacent presumed left kidney cysts. Significant surrounding perinephric edema. [BLADDER]: Right posterolateral bladder diverticulum [REPRODUCTIVE ORGANS]: Mild to moderate prostatomegaly. [BOWEL/MESENTERY]: Stomach is normal. No CT evidence of bowel obstruction. mild stool burden. 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 Correlate for bowel ischemia. No discrete CT evidence of bowel ischemia. No portal venous gas. [ABDOMINAL WALL]: Minimal diffuse body wall edema [MUSCULOSKELETAL]: No acute fracture or aggressive focal osseous lesion. Prior healed right anterior rib fractures. Right hip hardware. Multilevel prior areas of kyphoplasty and superior endplate height loss. IMPRESSION: 1. Significant complete occlusion of the proximal superior mesenteric artery (3- 50). Correlate for bowel ischemia. No portal venous gas. 2. Significant left posterior inferior irregular kidney mass with heterogeneous enhancement measuring 5 x 6.5 cm. 3. Large area of presumed hypoattenuation of the spleen with wedge-shaped appearance measuring 8.7 x 6.4 cm which may represent splenic infarct. 4. Splenomegaly. 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 Acute mesenteric ischemia # Left posterior renal mass size 6.5 cm into 5 cm #Acute versus chronic splenic infarction # suspected Septic emboli # suspected Sepsis #Atrial fibrillation, status post pacemaker #Chronic HFrEF #NSTEMI type 2 due to sepsis #Coronary artery disease with history of PCI with one BRAD #Splenomegaly #Cholelithiasis #Marijuana user #History of femoral intertrochanteric fracture, status post closed reduction nail insertion. Discharge Disposition: Home Discharge Instruct/Medications Diet: Consistent carbohydrate, Cardiac 2g Na,low cholest Activity: No Restrictions, As Tolerated Follow Up/Referral: Follow up with the discharge clinic in 1-2 weeks Please follow up with the urologist Dr. Mcadams for further evaluation and care of your left renal mass. Patient was also referred to [facility] for possible nephrectomy after following up with Dr. Mcadams Please follow up with the PCP in 1-2 weeks Medications: Amlodipine 10 mg p.o. daily Resume other home medications Scheduled Amlodipine Besylate (Amlodipine Besylate), 2 TAB PO DAILY Apixaban Base (Eliquis), 2.5 MG PO BID Atorvastatin Calcium (Atorvastatin Calcium), 40 MG PO HS Bacitracin (Bacitracin Oint), 1 APPLIC TOP BID Clopidogrel Bisulfate (Clopidogrel), 75 MG PO DAILY Empagliflozin (Jardiance), 10 MG PO DAILY Lisinopril (Lisinopril), 40 MG PO DAILY Metoprolol Succinate (Metoprolol Succinate Er), 25 MG PO DAILY Spironolactone (Spironolactone), 1 TAB PO DAILY Scheduled PRN Acetaminophen (Acetaminophen), 325 MG PO Q8HP PRN Discharge Statement: "Patient was advised to return to the ER or call 911 if any headaches, dizziness, shortness of breath, chest pain, abdominal pain, bleeding, fevers, or worsening of medical condition. Patient was counseled about treatment plan, medications, possible side effects, patientverbalized understanding. All questions were answered to the best of my ability. This discharge took greater then 30 minutes in planning, reviewing documentation, counseling the patient, and discussing with other team members." ASSESSMENT ASSESSMENT Assessment Date of Service: Jun 26, 2025 Billing Provider: JOSE ZAMBRANO MD, MOHAMMED RESIDENT Jun 26, 2025 16:58
[2025-06-26] MEDS ORDERED: AMLO1TAB22 PO (17:00)
--- NOTE | 2025-06-27 09:11 | ECG ---
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
== END 2025-06-26 19:45 | disposition home or self-care (01) | DRG 871 ==
LOC: ER 11:31 → OVERFLOW 06-23 00:09 → WEST WING 06-23 01:59
PROVIDERS: ADMIT Student in an Organized Health Care Education/Training Program; ATTEND Student in an Organized Health Care Education/Training Program
DX: A41.9 Sepsis, unspecified organism (principal); I21.A1 Myocardial infarction type 2; K55.069 Acute infarction of intestine, part and extent unspecified; K55.059 Acute (reversible) ischemia of intestine, part and extent unspecified; I50.22 Chronic systolic (congestive) heart failure; N39.0 Urinary tract infection, site not specified; I76 Septic arterial embolism; E87.6 Hypokalemia; I48.91 Unspecified atrial fibrillation; R16.1 Splenomegaly, not elsewhere classified; K80.20 Calculus of gallbladder without cholecystitis without obstruction; F17.210 Nicotine dependence, cigarettes, uncomplicated; I11.0 Hypertensive heart disease with heart failure; I25.10 Atherosclerotic heart disease of native coronary artery without angina pectoris; Z79.01 Long term (current) use of anticoagulants; M25.551 Pain in right hip; F12.90 Cannabis use, unspecified, uncomplicated; D73.5 Infarction of spleen; N28.89 Other specified disorders of kidney and ureter; Z79.02 Long term (current) use of antithrombotics/antiplatelets; Z79.84 Long term (current) use of oral hypoglycemic drugs; Z79.899 Other long term (current) drug therapy; Z83.3 Family history of diabetes mellitus; Z95.0 Presence of cardiac pacemaker; Z98.61 Coronary angioplasty status; Z80.9 Family history of malignant neoplasm, unspecified
CPT/HCPCS: 36415; 70450; 71045; 73700; 74178; 76775; 80048; 80053; 80076; 80307; 81001; 82306; 82550; 82607; 83036; 83605; 83735; 84100; 84443; 84484; 85025; 85610; 85730; 86704; 86706; 86708; 86803; 87040; 87086; 87340; 93005; 93306; 97116; 97163; 97530; 99291; G0378; J2543

== ENCOUNTER 2025-08-31 11:39 | Inpatient (IN) | payer OTHER, MEDICAID ==
[~2025-08-31] VITALS: Ht 172.7 cm; Wt 60.9 kg
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
[2025-08-31 12:42] LABS: Mean Corpuscular Hemoglobin 30.1 pg (28.0-32.0); Mean Corpuscular Volume 91.3 fL (80.0-100.0)
[2025-08-31 12:43] LABS: Hematocrit 66.8 % (41.0-53.0)
[2025-08-31 12:46] LABS: Hemoglobin 22.0 g/dL (13.5-17.5)
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
[2025-08-31 13:08] VITALS: PULSE 98; RESP 21; O2SAT 95
[2025-08-31 13:09] LABS: Anion Gap 19 (5-15); Calcium 10.3 mg/dL (8.7-10.4)
[2025-08-31 13:10] LABS: Carbon Dioxide 20 mmol/L (20-31); Chloride 107 mmol/L (98-107); Potassium 3.4 mmol/L (3.5-5.1); Sodium 146 mmol/L (136-145)
[2025-08-31 13:15] LABS: Glucose 121 mg/dL (74-106)
[2025-08-31 13:18] LABS: Giant Platelets Few; Total Cells Counted 100.0 (100)
[2025-08-31 13:25] LABS: Salicylate < 3.0 mg/dL (-30)
[2025-08-31 13:27] LABS: BUN/Creatinine Ratio 10.4 (10.0-20.0); Blood Urea Nitrogen 13 mg/dL (9-23)
[2025-08-31 13:29] LABS: Acetaminophen 2.0 UG/ML (10.0-20.0)
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
[2025-08-31] MEDS ORDERED: ACETAMINOPHEN 500 MG TAB or CAP PO PRN (15:15)
[2025-08-31] MEDS ORDERED: NITROGLYCERIN 0.4 MG SL TAB SL PRN (15:15)
[2025-08-31] MEDS ORDERED: ONDANSETRON HCL 4 MG/2 ML VIAL IV PRN (15:15)
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
[2025-08-31] MEDS ORDERED: MORPHINE SULFATE 4 MG/ML SYR/VIAL IV PRN (15:45)
--- NOTE | 2025-08-31 15:55 | DVH ---
CLINICAL INDICATION: rule out fx TECHNIQUE: 3 radiographic views of the left hand were obtained. COMPARISON: None FINDINGS/IMPRESSION: Nondisplaced fracture distal aspect 1st metacarpal of the thumb. Arthritic changes of the carpal radial joint space. Thin flake calcification adjacent to the distal aspect of the 1st metacarpal of the thumb may represent small avulsion fracture.
[2025-08-31] MEDS: POTASSIUM EFFERVESENT TAB 25 MEQ PO ONE (16:04)
[2025-08-31] MEDS: PIPERACILLIN-TAZOB 3.375GM 100 ML IV ONE (16:05)
[2025-08-31] MEDS: SODIUM CHLORIDE 0.9% 1,000 ML IV SCH (16:06)
[2025-08-31 17:04] LABS: Urine Protein, UAD 3+ (Negative)
[2025-08-31 17:22] LABS: Cannabinoid Screen, Urine Pos (NEGATIVE)
[2025-08-31 17:26] LABS: Amphetamine Screen, Urine Neg (NEGATIVE); Barbiturate Scree,Urine Neg (NEGATIVE); Benzodiazephine Screen, Urine Neg (NEGATIVE); Cocaine Screen, Urine Neg (NEGATIVE); Opiate Scree,Urine Neg (NEGATIVE); Phencyclidine Screen, Urine Neg (NEGATIVE)
[2025-08-31 21:35] VITALS: BP 137/65; PULSE 105; RESP 18; TEMP 97.5; O2SAT 94
[2025-08-31 21:40] VITALS: BP 122/66; PULSE 106; RESP 18; TEMP 98.3; O2SAT 94
[2025-08-31] MEDS: APIXABAN 2.5 MG TAB PO SCH (22:00)
[2025-08-31] MEDS: ATORVASTATIN 20 MG TAB PO SCH (22:00)
[2025-08-31] MEDS: PIPERACILLIN-TAZOB 3.375GM 100 ML IV SCH (23:33)
[2025-09-01] VITALS (9 sets, daily range): BP systolic 117–131; BP diastolic 66–94; PULSE 51–109; RESP 16–20; TEMP 97.1–98.3; O2SAT 94–96
[2025-09-01 07:30] LABS: Hematocrit 62.6 % (41.0-53.0); Hemoglobin 20.1 g/dL (13.5-17.5); Mean Corpuscular Hemoglobin 29.6 pg (28.0-32.0); Mean Corpuscular Volume 92.3 fL (80.0-100.0)
[2025-09-01 07:55] LABS: Total Cells Counted 100.0 (100)
[2025-09-01 07:56] LABS: Giant Platelets Few
[2025-09-01 08:48] LABS: Chloride 106 mmol/L (98-107); Potassium 4.4 mmol/L (3.5-5.1); Sodium 141 mmol/L (136-145)
[2025-09-01 08:49] LABS: Anion Gap 18 (5-15); Calcium 9.1 mg/dL (8.7-10.4); Carbon Dioxide 17 mmol/L (20-31)
[2025-09-01 08:54] LABS: BUN/Creatinine Ratio 12.0 (10.0-20.0); Blood Urea Nitrogen 13 mg/dL (9-23); Glucose 110 mg/dL (74-106)
[2025-09-01] MEDS: CLOPIDOGREL BISULFATE 75 MG TAB PO SCH (10:24)
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
--- NOTE | 2025-09-01 19:04 | DVHINCON2 ---
Date of service: Sep 01, 2025 History of Present Illness 79 yo M admitted due to ALOC who was found by neighbors for uknown duration. Patient has left hand pain/swelling. Limited story from patient. 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 GI: Constipation Heme/Onc: Anemia NOS Hepatobiliary: Cirrhosis Psych: Anxiety Musculoskeletal: Chronic low back pain Rheumatologic: Fibromyalgia Infectious disease: Bacterial vaginosis Past Surgical History: None (Craniectomy) Smoke: No Drugs: Marijuana Lives: Alone Family History: Diabetes mellitus G8 BROTHER FH: cancer G8 FATHER G8 BROTHER Allergies: Coded Allergies: NO KNOWN ALLERGIES (Unverified , 11/18/22) Home Meds Active Scripts Empagliflozin (Jardiance) 10 Mg Tab, 10 MG PO DAILY for 30 Days, #30 TAB 2 Refills Prov:RYAN HERNANDEZ RESIDENT 05/20/24 Spironolactone (Spironolactone) 25 Mg Tab, 1 TAB PO DAILY for 30 Days, #30 TAB 2 Refills Prov:RYAN HERNANDEZ [facility] 05/20/24 Apixaban Base (ELIQUIS) 5 Mg Tab, 2.5 MG PO BID for 30 Days, #30 TAB 0 Refills Prov:RYAN HERNANDEZ [facility] 05/20/24 Metoprolol Succinate (Metoprolol Succinate Er) 25 Mg Tab, 25 MG PO DAILY for 30 Days, #30 TAB 0 Refills Prov:RYAN HERNANDEZ [facility] 05/20/24 Bacitracin (Bacitracin Oint) 1 Applic Ap, 1 APPLIC TOP BID for 5 Days, #1 APPLIC 0 Refills Prov:RYAN HERNANDEZ [facility] 05/20/24 Acetaminophen (Acetaminophen) 325 Mg Tab, 325 MG PO Q8HP PRN for 7 Days, #21 TAB 0 Refills Prov:RYAN HERNANDEZ [facility] 05/20/24 Clopidogrel Bisulfate (CLOPIDOGREL) 75 Mg Tab, 75 MG PO DAILY for 30 Days, #30 TAB Prov:YUE WHITE MD 04/02/23 Atorvastatin Calcium (ATORVASTATIN CALCIUM) 20 Mg Tab, 40 MG PO HS for 30 Days, #30 TAB Prov:YUE WHITE MD 10/26/22 Lisinopril (Lisinopril) 40 Mg Tab, 40 MG PO DAILY for 30 Days, #30 TAB Prov:YUE WHITE MD 10/26/22 Current Medications Current Medications Medications (Trade) Dose Ordered Sig/Charissa Route PRN Reason Start Time Stop Time Status Last Admin Apixaban (Eliquis) 2.5 mg BID PO 08/31/25 22:00 09/01/25 10:24 Atorvastatin Calcium (Lipitor) 40 mg HS PO 08/31/25 22:00 Clopidogrel Bisulfate (Plavix) 75 mg DAILY PO 09/01/25 10:00 09/01/25 10:24 Piperacillin Sod/ Tazobactam Sod 100 ml @ 25 mls/hr Q8HR IV 08/31/25 22:00 09/01/25 14:00 Vital Signs Vital Signs Date Time Temp Pulse Resp B/P (MAP) Pulse Ox O2 Delivery O2 Flow Rate FiO2 09/01/25 17:00 97.3 80 18 117/85 (96) 96 97.3 09/01/25 08:00 Room Air* 0 21 Physical Exam Left Hand/Thumb: Swelling and tenderness over the thumb metacarpal No open wounds or skin compromise No gross deformity Range of motion: Limited due to pain Stability: No clinical instability appreciated Neurovascular: Sensation intact to light touch; capillary refill brisk; motor function intact Labs/Diagnostic Data Labs Test 09/01/25 06:25 08/31/25 16:30 08/31/25 15:33 08/31/25 12:31 Range/Units White Blood Count 26.2 H 4.4-10.8 10^3/uL Red Blood Count 6.78 H 4.5-5.90 10^6/uL Hemoglobin 20.1 H 13.5-17.5 g/dL Hematocrit 62.6 H 41.0-53.0 % Mean Corpuscular Volume 92.3 80.0-100.0 fL Mean Corpuscular Hemoglobin 29.6 28.0-32.0 pg Mean Corpuscular Hemoglobin Concent 32.1 32.0-36.0 g/dL Red Cell Distribution Width 17.2 H 11.8-14.3 % Platelet Count 323 140-450 10^3/uL Mean Platelet Volume 9.8 6.9-10.8 fL Neutrophils (%) (Auto) 37.0-80.0 % Lymphocytes (%) (Auto) 10.0-50.0 % Monocytes (%) (Auto) 0.0-12.0 % Basophils (%) (Auto) 0.0-2.0 % Neutrophils # (Auto) 1.6-8.6 10 ^3/uL Lymphocytes # (Auto) 0.4-5.4 10 ^3/uL Monocytes # (Auto) 0-1.3 10 ^3/uL Differential Total Cells Counted 100.0 100 Neutrophils % (Manual) 77 37.0-80.0 Band Neutrophils % (Manual) 8 Lymphocytes % (Manual) 8 L 10.0-50.0 Monocytes % (Manual) 7 0-12 Eosinophils % (Manual) 0 0-7 Basophils % (Manual) 0 0.0-2.0 Metamyelocytes % (manual) 0 Myelocytes % (Manual) 0 Promyelocytes % (Manual) 0 Blast Cells % (Manual) 0 Reactive Lymphocytes 0 Platelet Estimate Adequate Giant Platelets Few Sodium Level 141 # 136-145 mmol/L Potassium Level 4.4 3.5-5.1 mmol/L Chloride Level 106 98-107 mmol/L Carbon Dioxide Level 17 L 20-31 mmol/L Anion Gap 18 H 5-15 Blood Urea Nitrogen 13 9-23 mg/dL Creatinine 1.08 0.700-1.30 mg/dL Glomerular Filtration Rate Calc 69 >90 mL/min BUN/Creatinine Ratio 12.0 10.0-20.0 Serum Glucose 110 H 74-106 mg/dL Calcium Level 9.1 8.7-10.4 mg/dL Urine Color Yellow Yellow Urine Clarity Clear Clear Urine pH 6.0 5.0-9.0 Urine Specific [place] 1.018 1.001-1.035 Urine Protein 3+ H Negative Urine Ketones Negative Negative Urine Blood Trace H Negative /uL Urine Nitrite Negative Negative Urine Bilirubin 1+ Negative Urine Urobilinogen Normal Negative mg/dL Urine Leukocyte Esterase Negative Negative /uL Urine RBC 2 0 - 3 /hpf Urine Microscopic WBC 8 H 0-3 /HPF Urine Squamous Epithelial Cells Few <5 /hpf Urine Bacteria None seen None Seen /hpf Urine Hyaline Casts Mod 0 - 2 /lpf Urine Mucus Few None Seen Urine Glucose Normal Normal mg/dL Urine Opiates Screen Neg NEGATIVE Urine Fentanyl Screen Neg NEGATIVE Urine Barbiturates Screen Neg NEGATIVE Urine Phencyclidine Screen Neg NEGATIVE Urine Amphetamines Screen Neg NEGATIVE Urine Benzodiazepines Screen Neg NEGATIVE Urine Cocaine Screen Neg NEGATIVE Urine Cannabinoids Screen Pos NEGATIVE Troponin I High Sensitivity 163 *H </=54 ng/L Serum Osmolality 308 H 278-298 mOsm/kg Creatine Kinase 108 46-171 U/L Salicylates Level < 3.0 -30 mg/dL Acetaminophen Level 2.0 L 10.0-20.0 UG/ML Plasma/Serum Blood Alcohol < 3.0 <10 mg/dL Microbiology Date/Time Source Procedure Growth Status 08/31/25 16:30 Voided Urine Urine Culture - Preliminary Resulted 08/31/25 15:42 Blood Blood Culture - Preliminary NO GROWTH AFTER 24 HOURS OF INCUBATION. Resulted Plan/Recommendation Left thumb metacarpal fracture with acceptable alignment and stability. Injury is appropriate for nonoperative management. Plan Nonoperative treatment Immobilization in a thumb spica splint -- can get from [facility] Ortho clinic DME Nonweight bearing left hand; avoid gripping, pinching, or lifting Elevation and ice for swelling Pain control as needed Follow-up with Hand/Orthopaedic Surgery in 12 weeks for repeat X-rays and exam Patient educated on fracture healing, splint care, and warning signs (increasing pain, numbness, swelling, skin issues) Plan discussed with: Patient, Other CHRISTIANA MARTINI MD Sep 01, 2025 19:03
[2025-09-02] VITALS (8 sets, daily range): BP systolic 128–159; BP diastolic 81–105; PULSE 47–111; RESP 16–18; TEMP 97.4–98.1; O2SAT 92–96
[2025-09-02 06:01] LABS: Nucleated Red Blood Cells % 0.4 %
[2025-09-02 06:03] LABS: Hematocrit 57.3 % (41.0-53.0); Hemoglobin 19.0 g/dL (13.5-17.5); Mean Corpuscular Hemoglobin 30.0 pg (28.0-32.0); Mean Corpuscular Volume 90.5 fL (80.0-100.0)
[2025-09-02 06:16] LABS: Alanine Aminotransferase 12 U/L (7-40); Alkaline Phosphatase 80 U/L (46-116); Anion Gap 9 (5-15); BUN/Creatinine Ratio 12.0 (10.0-20.0); Blood Urea Nitrogen 12 mg/dL (9-23); Calcium 9.0 mg/dL (8.7-10.4); Carbon Dioxide 24 mmol/L (20-31); Glucose 84 mg/dL (74-106); Potassium 3.6 mmol/L (3.5-5.1); Sodium 142 mmol/L (136-145)
[2025-09-02 06:17] LABS: Albumin 3.0 g/dL (3.2-4.8); Bilirubin, Total 2.8 mg/dL (0.2-1.0); Chloride 109 mmol/L (98-107); Total Protein 5.6 g/dL (5.7-8.2)
[2025-09-02] MEDS: HYDROcodone-ACET 5/325MG TAB PO PRN (10:16)
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
[2025-09-02] MEDS: D5W/SOD CHL 0.45% 1,000 ML IV SCH (14:15)
[2025-09-02] MEDS: THIAMINE 100mg/ml INJ (200mg/2ml VIAL) IV ONE (14:49)
--- NOTE | 2025-09-02 15:28 | DVH ---
INDICATION: Right upper quadrant for hyperbilirubinemia. TECHNIQUE: Multiple real-time sonographic images were obtained of the right upper quadrant. COMPARISON: None FINDINGS: The liver demonstrates homogenous echotexture without focal mass lesions. There is no intrahepatic or extrahepatic ductal dilatation. The common duct measures 4.6 mm. The gallbladder again contains a large stone. The gallbladder wall measures 2.5 mm and is within normal limits. There is no evidence of a sonographic Miller's sign. The right kidney measures 11.8 cm. The right kidney is normal in contour, size, and shape. The echogenicity is normal. There is no hydronephrosis. There is redemonstration of a 4.8 x 3.7 x 4.9 cm hypoechoic structure inferior to the right kidney. The left kidney is again seen to contain an irregular mass off the inferior pole measuring upwards of 5.6 cm. The pancreas is not well visualized due to overlying bowel gas. IMPRESSION: 1. Cholelithiasis without sonographic evidence of acute cholecystitis. 2. Redemonstration of a 4.8 x 3.7 x 4.9 cm hypoechoic structure inferior to the right kidney.This is nonspecific and may represent a complex cyst or mass. 3. Redemonstration of a 5.6 cm irregular mass off the inferior pole of the left kidney. Again very worrisome for neoplasm.
[2025-09-03] VITALS (8 sets, daily range): BP systolic 136–158; BP diastolic 91–107; PULSE 61–99; RESP 17–18; TEMP 97.2–98.3; O2SAT 94–98
[2025-09-03] MEDS: THIAMINE HCL 100 MG TAB PO SCH (09:30)
[2025-09-03] MEDS: PYRIDOXINE HCL 50 MG TAB PO SCH (09:30)
[2025-09-03] MEDS: CYANOCOBALAMIN 500 MCG TAB PO SCH (09:30)
--- NOTE | 2025-09-03 11:57 | MEDREC ---
[facility] ASP Intervention Section I [facility] ASP Intervention: Review courses of therapy (PLEASE CONSIDER D/C ANTIBIOTIC IN ABSENCE OF BACTERIAL INFECTION) CHIKI VELASQUEZ PHARMACIST Sep 03, 2025 11:57
--- NOTE | 2025-09-03 12:10 | CONS ---
Pharmacy Clinical Information: From Heart Failure Fallout Report on CQM Application, Arsalan Woodall is a 79-year-old male with AFIB, CHF, HTN, constipation, anemia NOS, cirrhosis, anxiety, chronic low back pain, fibromyalgia His home medications for CHF include empagliflozin, lisinopril, metoprolol succinate, and spironolactone For optimal heart failure GDMT, please consider resuming patients home medications - Continue metoprolol succinate as the evidence-based beta-sebastian. - Maintain HERNAN inhibitor therapy with lisinopril. - Continue spironolactone as the mineralocorticoid receptor antagonist and empagliflozin as the SGLT2 inhibitor. Monitor blood pressure, renal function, electrolytes, and titrate doses toward g uideline-recommended targets. JENNIFER P[facility]TMAN [facility] Sep 03, 2025 12:10
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
[2025-09-03 15:21] LABS: Hemoglobin 18.7 g/dL (13.5-17.5); Mean Corpuscular Hemoglobin 29.8 pg (28.0-32.0)
[2025-09-03 15:22] LABS: Mean Corpuscular Volume 91.4 fL (80.0-100.0); Nucleated Red Blood Cells % 0.9 %
[2025-09-03 15:23] LABS: Hematocrit 57.2 % (41.0-53.0)
--- NOTE | 2025-09-03 15:38 | DVHPN2 ---
Subjective Patient denies any symptoms Reviewed: H&P Changes from previous H/P or p: No Changes General: Per HPI Eyes: No Pain, No Vision change, No Conjunctivae inflammation, No Eyelid inflammation, No Other, No Redness ENT: No Ear pain, No Ear discharge, No Nose pain, No Nose discharge, No Nose congestion, No Mouth pain, No Mouth swelling, No Throat pain, No Throat swelling, No Other Cardiovascular: No Chest Pain, No Palpitations, No Orthopnea, No Paroxysmal Noc. Dyspnea, No Edema, No Lt Headedness, No Other Respiratory: No Cough, No Dry, No Shortness of breath, No SOB with excertion, No Wheezing, No Hemoptysis, No Pleuritic Pain, No Sputum, No Other Gastrointestinal: No Nausea, No Vomiting, No Abdominal Pain, No Diarrhea, No Constipation, No Melena, No Hematochezia, No Other Genitourinary: No Dysuria, No Frequency, No Incontinence, No Hematuria, No Retention, No Other Musculoskeletal: No other, No neck pain, No shoulder pain, No arm pain, No back pain, No hand pain, No leg pain, No foot pain Skin: No Rash, No Lesions, No Jaundice, No Bruising, No Other Objective Vitals Vital Signs Date Time Temp Pulse Resp B/P (MAP) Pulse Ox O2 Delivery O2 Flow Rate FiO2 09/03/25 13:00 98.0 62 17 158/96 (116) 96 98.0 09/03/25 08:00 Room Air* 0 21 Intake/Output Intake and Output 09/03/25 07:00 Intake Total 2065 ml Output Total 1225 ml Balance 840 ml Intake Oral 965 ml IV Total 1100 ml Output Urine Total 1225 ml # Bowel Movements 1 General Appearance: Alert, Oriented X3, Cooperative, moderate distress HEENT: Atraumatic, PERRLA Cardiovascular: Normal S1, Normal S2 Skin: Dry, Intact Psych/Mental Status: Mental status NL, Mood NL Medications Current Medications Medications Dose Ordered Sig/Charissa Route Start Time Stop Time Status Last Admin Dose Admin Nitroglycerin 0.4 mg Q5MINP PRN SL 08/31/25 15:15 Morphine Sulfate 2 mg Q30M PRN IV 08/31/25 15:45 Apixaban 2.5 mg BID PO 08/31/25 22:00 09/03/25 09:30 2.5 MG Atorvastatin Calcium 40 mg HS PO 08/31/25 22:00 09/02/25 21:22 40 MG Clopidogrel Bisulfate 75 mg DAILY PO 09/01/25 10:00 09/03/25 09:30 75 MG Acetaminophen/ Hydrocodone Bitart 1 tab Q6HPRN PRN PO 08/31/25 15:15 09/02/25 10:16 1 TAB Acetaminophen 500 mg Q8HP PRN PO 08/31/25 15:15 Ondansetron HCl 4 mg Q6HP PRN IV 08/31/25 15:15 Piperacillin Sod/ Tazobactam Sod 100 ml @ 25 mls/hr Q8HR IV 08/31/25 22:00 09/03/25 13:01 25 MLS/HR Cyanocobalamin 500 mcg DAILY PO 09/03/25 10:00 09/03/25 09:30 500 MCG Pyridoxine HCl 50 mg DAILY PO 09/03/25 10:00 09/03/25 09:30 50 MG Thiamine HCl 100 mg DAILY PO 09/03/25 10:00 09/03/25 09:30 100 MG Dextrose/Sodium Chloride 1,000 ml @ 50 mls/hr Q20H IV 09/02/25 14:15 09/03/25 10:21 50 MLS/HR Laboratory Results Laboratory Tests 09/03/25 14:23 Chemistry Test 09/03/25 14:23 Albumin Pending Calcium Level Pending Total Protein Pending LFT Test 09/03/25 14:23 Alanine Aminotransferase (ALT) Pending Alkaline Phosphatase Pending Aspartate Amino Transferase (AST) Pending Total Bilirubin Pending Urinalysis Test 08/31/25 16:30 Urine Color Yellow (Yellow) Urine Clarity Clear (Clear) Urine pH 6.0 (5.0-9.0) Urine Specific [place] 1.018 (1.001-1.035) Urine Protein 3+ (Negative) H Urine Ketones Negative (Negative) Urine Blood Trace /uL (Negative) H Urine Nitrite Negative (Negative) Urine Bilirubin 1+ (Negative) Urine Urobilinogen Normal mg/dL (Negative) Urine Leukocyte Esterase Negative /uL (Negative) Urine RBC 2 /hpf (0 - 3) Urine Microscopic WBC 8 /HPF (0-3) H Urine Squamous Epithelial Cells Few /hpf (<5) Urine Bacteria None seen /hpf (None Seen) Urine Hyaline Casts Mod /lpf (0 - 2) Urine Mucus Few (None Seen) Urine Glucose Normal mg/dL (Normal) Microbiology Microbiology Date/Time Source Procedure Growth Status 08/31/25 16:30 Voided Urine Urine Culture - Final Complete 08/31/25 15:42 Blood Blood Culture - Preliminary NO GROWTH AFTER 48 HOURS OF INCUBATION. Resulted Labs and/or images reviewed: Labs reviewed by me, Image(s) reviewed by me Assessment/Plan Assessment/Plan Impression: -metabolic encephalopathy -probable severe dehydration -rule out rhabdomyolysis -atrial fibrillation -cachexia -hypokalemia -accelerated hypertension -acute on chronic systolic heart failure -multiple rib fractures -leukocytosis, rule out sepsis Plan: Events: No events overnight. Cultures negative thus far. White blood cell count improving. Noted thumb fracture with ortho consultation. Recommendations for splint -gentle IV hydration -continue anticoagulation -pain management -mathews cultures -empiric antibiotic therapy with Zosyn -social service consultation for DC planning to [facility] for proximally two weeks of physical therapy Total time spent with patient discussing and formulating plan of care: 35 minutes. This medical document was created using an electronic medical record system with [employer] dictation system. Although this document has been carefully reviewed, there may still be some phonetic and typographical errors. These areas are purely typographical due to imperfections of the software programs, and do not reflect any compromise in the patient's medical care. Plan discussed with: Patient, Other (Rn) My Orders Orders - ADRIEN MCGARRY NP Procedure Category Date Status Time * Animal Pathologist CONS 09/03/25 Transmitted Consult Date of Service: Sep 03, 2025 Billing Provider: ADRIEN MCGARRY NP Common Visit Codes: [id number] INP/OBS CARE(HIGH) ADRIEN MCGARRY NP Sep 03, 2025 15:38
[2025-09-03 15:39] LABS: Alkaline Phosphatase 71 U/L (46-116); Anion Gap 9 (5-15); Calcium 8.9 mg/dL (8.7-10.4); Carbon Dioxide 23 mmol/L (20-31); Chloride 106 mmol/L (98-107); Sodium 138 mmol/L (136-145); Total Protein 5.8 g/dL (5.7-8.2)
[2025-09-03 15:41] LABS: BUN/Creatinine Ratio 6.7 (10.0-20.0)
[2025-09-03 15:42] LABS: Alanine Aminotransferase 16 U/L (7-40); Albumin 3.1 g/dL (3.2-4.8); Bilirubin, Total 2.4 mg/dL (0.2-1.0); Blood Urea Nitrogen 7 mg/dL (9-23); Glucose 123 mg/dL (74-106); Potassium 4.7 mmol/L (3.5-5.1)
[2025-09-04] VITALS (7 sets, daily range): BP systolic 127–155; BP diastolic 86–122; PULSE 80–101; RESP 16–20; TEMP 36.7; O2SAT 95–98
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
== END 2025-09-04 17:51 | DRG 70 ==
LOC: ER 11:39 → EDBD 11:39 → OVERFLOW 15:02 → TELE-EAST 21:35
PROVIDERS: ADMIT Nurse Practitioner Acute Care; ATTEND Nurse Practitioner Acute Care
DX: G93.41 Metabolic encephalopathy (principal); I50.23 Acute on chronic systolic (congestive) heart failure; R64 Cachexia; I11.0 Hypertensive heart disease with heart failure; K74.60 Unspecified cirrhosis of liver; E86.0 Dehydration; I48.91 Unspecified atrial fibrillation; E87.6 Hypokalemia; F17.210 Nicotine dependence, cigarettes, uncomplicated; R65.10 Systemic inflammatory response syndrome (SIRS) of non-infectious origin without acute organ dysfunction; Z79.01 Long term (current) use of anticoagulants; Z68.1 Body mass index [BMI] 19.9 or less, adult; G90.9 Disorder of the autonomic nervous system, unspecified; M54.50 Low back pain, unspecified; F41.9 Anxiety disorder, unspecified; G89.29 Other chronic pain; M79.7 Fibromyalgia; Z83.3 Family history of diabetes mellitus; Z86.73 Personal history of transient ischemic attack (TIA), and cerebral infarction without residual deficits
CPT/HCPCS: 36415; 70450; 71045; 72125; 73130; 76705; 80048; 80053; 80307; 80320; 80329; 81001; 82140; 82550; 82607; 83930; 84443; 84484; 85007; 85025; 85027; 87040; 87086; 97110; 97116; 97163; 97530; 99291; G0378; J2543